=== PATIENT | male | born 1975 ===

== ENCOUNTER 2017-09-06 22:43 | Inpatient (IN) ==
[2017-09-07 00:40] LABS: Basophils % 0.2 % (0.0-0.8); Eosinophils % 0.1 % (0.00-10.9); Hemoglobin 10.5 GM/DL (14.0-18.0); Immature Granulocytes % 0.4 %; Immature Granulocytes Absolute 0.06 #; Lymphocytes # 1.1 10*3/uL (1.4-4.0); Lymphocytes % 7.5 % (21.2-54.2); Mean Corpuscular HGB Conc 33.9 GM/DL (32-36); Mean Corpuscular Hemoglobin 33 PG (27-34); Mean Corpuscular Volume 97.5 FL (87-102); Monocytes # 0.8 10*3/uL (0.11-0.8); Neutrophils % 86.8 % (38.7-73.9); Platelet Count 108 T/CUMM (130-400); Red Blood Count 3.18 MC/CUMM (3.8-5.5); Red Cell Distribution Width 14.8 % (9.3-17.3)
[2017-09-07 01:03] LABS: Calcium 7.1 MG/DL (8.5-10.1); Osmolality,Calculated 276.1 MOS/KG (273-304); Potassium 3.4 MMOL/L (3.5-5.1)
[2017-09-07] MEDS ORDERED: MAGNESIUM HYDROXIDE SUSP 30 ML UDCUP PO PRN (01:34)
[2017-09-07] MEDS ORDERED: ONDANSETRON 4 MG/2 ML VIAL IV PRN (01:34)
[2017-09-07] MEDS ORDERED: MORPHINE 2 MG/1 ML SYRINGE IV PRN ×2 (01:34→09:13)
[2017-09-07] MEDS ORDERED: CLINDAMYCIN INJ 600 MG in PREMIX 1 EACH IV STA (01:34)
[2017-09-07] MEDS ORDERED: CLINDAMYCIN INJ 600 MG in PREMIX 1 EACH IV SCH (03:00)
[2017-09-07] MEDS: INSULIN LISPRO 100 UNIT/ML SUBCUT SCH ×5 (03:31→20:48)
[2017-09-07 04:03] LABS: Albumin 2.3 G/DL (3.4-5.0); Bilirubin,Total 0.5 MG/DL (0.2-1.0); Calcium 7.4 MG/DL (8.5-10.1); Osmolality,Calculated 278.1 MOS/KG (273-304); Potassium 3.5 MMOL/L (3.5-5.1); Total Protein 7.4 G/DL (6.4-8.3)
[2017-09-07] MEDS ORDERED: VANCOMYCIN INJ 1,000 MG in SODIUM CHLORIDE 0.9% 250 ML IV ONE (07:59)
[2017-09-07] MEDS ORDERED: GLUCAGON 1 MG VIAL IM PRN (08:54)
[2017-09-07] MEDS ORDERED: DEXTROSE 50% 25 GM/50 ML VIAL IV PRN (08:54)
[2017-09-07] MEDS ORDERED: traZODone 50 MG TABLET PO PRN (08:55)
[2017-09-07] MEDS ORDERED: BISACODYL 5 MG TABLET PO PRN (08:55)
[2017-09-07] MEDS ORDERED: PROMETHAZINE 25 MG/1 ML VIAL IM PRN (08:55)
[2017-09-07] MEDS ORDERED: MEPERIDINE 25 MG/1 ML VIAL ONE (09:09)
[2017-09-07] MEDS ORDERED: ONDANSETRON 4 MG/2 ML VIAL ONE (09:09)
[2017-09-07] MEDS ORDERED: SEVOFLURANE 1 UNIT/15 MINUTE INH ONE (09:09)
[2017-09-07] MEDS ORDERED: PROPOFOL 200 MG/20 ML VIAL IV ONE (09:09)
[2017-09-07] MEDS: SEVELAMER CARBONATE 800 MG TABLET PO SCH ×3 (09:54→17:15)
[2017-09-07 10:04] LABS: Risk Ratio 4.39; VLDL CHOLESTEROL 30.6 MG/DL
[2017-09-07] MEDS: ASPIRIN EC 81 MG TABLET PO SCH (10:32)
[2017-09-07] MEDS: MULTIVITAMIN (BEROCCA) TABLET PO SCH (10:32)
[2017-09-07] MEDS: CARVEDILOL 12.5 MG TABLET PO SCH ×2 (10:32→21:15)
[2017-09-07] MEDS: PIPERACILLIN/TAZOBACTAM 3,375 MG in SODIUM CHLORIDE 0.9% 100 ML IV SCH ×2 (11:50→22:57)
[2017-09-07] MEDS: MUPIROCIN 2% OINT 22 GM TUBE TOP SCH ×2 (12:06→21:19)
[2017-09-07] MEDS: INSULIN REGULAR 100 UNIT/ML SUBCUT SCH ×3 (12:49→21:14)
[2017-09-07] MEDS: diphenhydrAMINE CAP 25 MG CAPSULE PO PRN ×2 (15:36→22:58)
[2017-09-08] MEDS: MORPHINE 2 MG/1 ML SYRINGE IV PRN ×3 (06:10→23:40)
[2017-09-08] MEDS: diphenhydrAMINE CAP 25 MG CAPSULE PO PRN ×2 (06:18→12:19)
[2017-09-08 06:59] LABS: Basophils % 0.5 % (0.0-0.8); Eosinophils # 0.1 10*3/uL (0.0-0.87); Eosinophils % 2.1 % (0.00-10.9); Hemoglobin 10.6 GM/DL (14.0-18.0); Immature Granulocytes % 0.2 %; Immature Granulocytes Absolute 0.01 #; Lymphocytes # 1.4 10*3/uL (1.4-4.0); Lymphocytes % 32.3 % (21.2-54.2); Mean Corpuscular HGB Conc 33.1 GM/DL (32-36); Mean Corpuscular Hemoglobin 32 PG (27-34); Mean Corpuscular Volume 97.9 FL (87-102); Mean Platelet Volume 12.5 FL (9.6-12.0); Monocytes # 0.4 10*3/uL (0.11-0.8); Monocytes % 8.4 % (1.7-12.7); Neutrophils # 2.4 10*3/uL (1.4-7.4); Neutrophils % 56.5 % (38.7-73.9); Red Blood Count 3.27 MC/CUMM (3.8-5.5); Red Cell Distribution Width 14.9 % (9.3-17.3)
[2017-09-08 07:09] LABS: Platelet Count 84 T/CUMM (130-400); White Blood Count 4.3 T/CUMM (4-12)
[2017-09-08 07:23] LABS: Calcium 7.2 MG/DL (8.5-10.1); Osmolality,Calculated 277.4 MOS/KG (273-304); Potassium 3.5 MMOL/L (3.5-5.1)
[2017-09-08 07:26] LABS: Hypochromasia 1+
[2017-09-08] MEDS: SEVELAMER CARBONATE 800 MG TABLET PO SCH ×3 (08:18→19:33)
[2017-09-08] MEDS: CARVEDILOL 12.5 MG TABLET PO SCH ×2 (08:19→20:35)
[2017-09-08] MEDS: MULTIVITAMIN (BEROCCA) TABLET PO SCH (08:19)
[2017-09-08] MEDS: ASPIRIN EC 81 MG TABLET PO SCH (08:19)
[2017-09-08] MEDS: INSULIN LISPRO 100 UNIT/ML SUBCUT SCH ×4 (08:21→21:45)
[2017-09-08] MEDS: INSULIN REGULAR 100 UNIT/ML SUBCUT SCH ×4 (08:21→21:45)
[2017-09-08] MEDS: MUPIROCIN 2% OINT 22 GM TUBE TOP SCH ×2 (10:15→21:45)
[2017-09-08] MEDS: PIPERACILLIN/TAZOBACTAM 3,375 MG in SODIUM CHLORIDE 0.9% 100 ML IV SCH ×2 (10:49→23:41)
[2017-09-09] MEDS: diphenhydrAMINE CAP 25 MG CAPSULE PO PRN (03:00)
[2017-09-09 06:34] LABS: Basophils % 0.6 % (0.0-0.8); Eosinophils # 0.1 10*3/uL (0.0-0.87); Eosinophils % 2.4 % (0.00-10.9); Hematocrit 30.5 VOL% (42.0-52.0); Immature Granulocytes % 0.2 %; Immature Granulocytes Absolute 0.01 #; Lymphocytes # 1.6 10*3/uL (1.4-4.0); Lymphocytes % 34.2 % (21.2-54.2); Mean Corpuscular HGB Conc 32.8 GM/DL (32-36); Mean Corpuscular Hemoglobin 32 PG (27-34); Mean Corpuscular Volume 97.8 FL (87-102); Mean Platelet Volume 11.8 FL (9.6-12.0); Monocytes # 0.5 10*3/uL (0.11-0.8); Monocytes % 10.2 % (1.7-12.7); Neutrophils # 2.4 10*3/uL (1.4-7.4); Neutrophils % 52.4 % (38.7-73.9); Platelet Count 100 T/CUMM (130-400); Red Blood Count 3.12 MC/CUMM (3.8-5.5); Red Cell Distribution Width 14.7 % (9.3-17.3); White Blood Count 4.6 T/CUMM (4-12)
[2017-09-09 06:57] LABS: Calcium 7.2 MG/DL (8.5-10.1); Osmolality,Calculated 275.2 MOS/KG (273-304); Potassium 3.7 MMOL/L (3.5-5.1)
[2017-09-09] MEDS: INSULIN REGULAR 100 UNIT/ML SUBCUT SCH ×4 (09:02→23:46)
[2017-09-09] MEDS: INSULIN LISPRO 100 UNIT/ML SUBCUT SCH ×4 (09:03→21:29)
[2017-09-09] MEDS: MORPHINE 2 MG/1 ML SYRINGE IV PRN ×4 (09:04→23:47)
[2017-09-09] MEDS: SEVELAMER CARBONATE 800 MG TABLET PO SCH ×3 (10:35→18:52)
[2017-09-09] MEDS: ASPIRIN EC 81 MG TABLET PO SCH (10:35)
[2017-09-09] MEDS: MUPIROCIN 2% OINT 22 GM TUBE TOP SCH ×2 (10:36→21:29)
[2017-09-09] MEDS: MULTIVITAMIN (BEROCCA) TABLET PO SCH (10:36)
[2017-09-09] MEDS: CARVEDILOL 12.5 MG TABLET PO SCH ×2 (10:36→21:28)
[2017-09-09] MEDS ORDERED: DEXAMETHASONE 4 MG/1 ML VIAL ONE (10:43)
[2017-09-09] MEDS ORDERED: ETOMIDATE 20 MG/10 ML VIAL IV ONE ×2 (10:43→12:21)
[2017-09-09] MEDS ORDERED: PROPOFOL 200 MG/20 ML VIAL IV ONE ×2 (10:43→12:20)
[2017-09-09] MEDS ORDERED: LIDOCAINE 2% 5 ML VIAL ONE (10:43)
[2017-09-09] MEDS ORDERED: ONDANSETRON 4 MG/2 ML VIAL ONE ×2 (10:43→12:21)
[2017-09-09] MEDS ORDERED: HEPARIN 5,000 UNIT/1 ML VIAL ONE (11:29)
[2017-09-09] MEDS ORDERED: DEXAMETHASONE 10 MG/1 ML VIAL ONE (12:21)
[2017-09-09] MEDS ORDERED: MIDAZOLAM 2 MG/2 ML VIAL ONE (12:21)
[2017-09-09] MEDS ORDERED: SODIUM CHLORIDE 0.9% 250 ML IV ONE (12:21)
[2017-09-09] MEDS ORDERED: SEVOFLURANE 1 UNIT/15 MINUTE INH ONE (12:21)
[2017-09-09] MEDS: PIPERACILLIN/TAZOBACTAM 3,375 MG in SODIUM CHLORIDE 0.9% 100 ML IV SCH ×2 (14:11→22:43)
[2017-09-09] MEDS ORDERED: VANCOMYCIN INJ 750 MG in SODIUM CHLORIDE 0.9% 150 ML IV ONE (16:00)
[2017-09-09] MEDS ORDERED: cloNIDine 0.1 MG TABLET PO PRN (16:10)
[2017-09-09] MEDS ORDERED: VANCOMYCIN INJ 750 MG in SODIUM CHLORIDE 0.9% 250 ML IV PRN (18:00)
[2017-09-09] MEDS: LOSARTAN 50 MG TABLET PO SCH (18:52)
[2017-09-10] MEDS: MORPHINE 2 MG/1 ML SYRINGE IV PRN ×3 (06:02→21:22)
[2017-09-10 06:34] LABS: Calcium 6.9 MG/DL (8.5-10.1); Osmolality,Calculated 282.2 MOS/KG (273-304); Potassium 4.3 MMOL/L (3.5-5.1)
[2017-09-10 07:51] LABS: Basophils % 0.2 % (0.0-0.8); Hematocrit 29.5 VOL% (42.0-52.0); Immature Granulocytes % 0.4 %; Immature Granulocytes Absolute 0.02 #; Lymphocytes # 0.9 10*3/uL (1.4-4.0); Lymphocytes % 20.9 % (21.2-54.2); Mean Corpuscular HGB Conc 33.9 GM/DL (32-36); Mean Corpuscular Hemoglobin 33 PG (27-34); Mean Platelet Volume 12.1 FL (9.6-12.0); Monocytes # 0.4 10*3/uL (0.11-0.8); Neutrophils # 3.1 10*3/uL (1.4-7.4); Neutrophils % 69.5 % (38.7-73.9); Platelet Count 124 T/CUMM (130-400); Red Blood Count 3.04 MC/CUMM (3.8-5.5); Red Cell Distribution Width 14.7 % (9.3-17.3); White Blood Count 4.5 T/CUMM (4-12)
[2017-09-10] MEDS: INSULIN LISPRO 100 UNIT/ML SUBCUT SCH ×4 (07:56→21:16)
[2017-09-10] MEDS: INSULIN REGULAR 100 UNIT/ML SUBCUT SCH ×3 (07:56→17:23)
[2017-09-10] MEDS ORDERED: HEPARIN 5,000 UNIT/1 ML VIAL ONE (08:42)
[2017-09-10] MEDS: SEVELAMER CARBONATE 800 MG TABLET PO SCH ×3 (08:55→17:20)
[2017-09-10] MEDS: ASPIRIN EC 81 MG TABLET PO SCH (08:55)
[2017-09-10] MEDS: MULTIVITAMIN (BEROCCA) TABLET PO SCH (08:56)
[2017-09-10] MEDS: CARVEDILOL 12.5 MG TABLET PO SCH ×2 (08:56→21:16)
[2017-09-10] MEDS: MUPIROCIN 2% OINT 22 GM TUBE TOP SCH ×2 (08:56→21:26)
[2017-09-10] MEDS: LOSARTAN 50 MG TABLET PO SCH (08:56)
[2017-09-10] MEDS ORDERED: BUPIVACAINE 0.25% 50 ML VIAL ONE (09:00)
[2017-09-10] MEDS ORDERED: MICROFIBRILLAR COLLAGEN POWDER 1 GM CAN TOP ONE (09:30)
[2017-09-10] MEDS ORDERED: SODIUM CHLORIDE 0.9% IV SCH (11:00)
[2017-09-10] MEDS ORDERED: DAPTOMYCIN IV SCH (11:00)
[2017-09-10] MEDS: PIPERACILLIN/TAZOBACTAM 3,375 MG in SODIUM CHLORIDE 0.9% 100 ML IV SCH (11:18)
[2017-09-10] MEDS: AMPICILLIN/SULBACTAM 1,500 MG in SODIUM CHLORIDE 0.9% 50 ML IV SCH ×2 (11:26→23:09)
[2017-09-10] MEDS: diphenhydrAMINE CAP 25 MG CAPSULE PO PRN (11:43)
[2017-09-10] MEDS ORDERED: INSULIN GLARGINE 100 UNIT/ML SUBCUT SCH (21:00)
[2017-09-11 05:08] LABS: Hematocrit 24.2 VOL% (42.0-52.0)
[2017-09-11 05:40] LABS: Calcium 6.4 MG/DL (8.5-10.1); Osmolality,Calculated 272.4 MOS/KG (273-304); Potassium 4.3 MMOL/L (3.5-5.1)
[2017-09-11] MEDS ORDERED: ePHEDrine 50 MG/ML AMP ONE (07:36)
[2017-09-11] MEDS ORDERED: fentaNYL 100 MCG/2 ML VIAL ONE (07:36)
[2017-09-11] MEDS ORDERED: MIDAZOLAM 2 MG/2 ML VIAL ONE (07:36)
[2017-09-11] MEDS: INSULIN LISPRO 100 UNIT/ML SUBCUT SCH ×4 (07:37→20:11)
[2017-09-11] MEDS: DOCUSATE SODIUM 100 MG CAPSULE PO PRN (07:48)
[2017-09-11] MEDS: MORPHINE 2 MG/1 ML SYRINGE IV PRN ×3 (07:48→20:10)
[2017-09-11] MEDS: LOSARTAN 50 MG TABLET PO SCH (08:01)
[2017-09-11] MEDS: MULTIVITAMIN (BEROCCA) TABLET PO SCH (08:01)
[2017-09-11] MEDS: CARVEDILOL 12.5 MG TABLET PO SCH ×2 (08:01→20:10)
[2017-09-11] MEDS: ASPIRIN EC 81 MG TABLET PO SCH (08:01)
[2017-09-11] MEDS: SEVELAMER CARBONATE 800 MG TABLET PO SCH ×3 (08:02→17:12)
[2017-09-11] MEDS: MUPIROCIN 2% OINT 22 GM TUBE TOP SCH ×3 (08:02→20:08)
[2017-09-11] MEDS: diphenhydrAMINE CAP 25 MG CAPSULE PO PRN (10:05)
[2017-09-11] MEDS ORDERED: HEPARIN 10,000 UNIT/10 ML VIAL IV SCH (11:00)
[2017-09-11] MEDS ORDERED: ONDANSETRON 4 MG/2 ML VIAL ONE (12:04)
[2017-09-11] MEDS ORDERED: SEVOFLURANE 1 UNIT/15 MINUTE INH ONE (12:04)
[2017-09-11] MEDS ORDERED: PHENYLEPHRINE DRIP 20 MG/250 ML PREMIX IV ONE (12:04)
[2017-09-11] MEDS ORDERED: PROPOFOL 200 MG/20 ML VIAL IV ONE (12:04)
[2017-09-11] MEDS: AMPICILLIN/SULBACTAM 1,500 MG in SODIUM CHLORIDE 0.9% 50 ML IV SCH ×2 (12:31→22:59)
[2017-09-11] MEDS ORDERED: INSULIN GLARGINE 100 UNIT/ML SUBCUT SCH (15:36)
[2017-09-11] MEDS: AMPICILLIN INJ 2,000 MG in SODIUM CHLORIDE 0.9% 50 ML IV SCH (18:38)
[2017-09-12] MEDS: MORPHINE 2 MG/1 ML SYRINGE IV PRN ×3 (04:37→20:30)
[2017-09-12 06:26] LABS: Basophils % 0.4 % (0.0-0.8); Eosinophils # 0.1 10*3/uL (0.0-0.87); Eosinophils % 1.3 % (0.00-10.9); Hematocrit 26.9 VOL% (42.0-52.0); Hemoglobin 8.8 GM/DL (14.0-18.0); Immature Granulocytes % 0.4 %; Immature Granulocytes Absolute 0.02 #; Lymphocytes # 1.7 10*3/uL (1.4-4.0); Lymphocytes % 32.4 % (21.2-54.2); Mean Corpuscular HGB Conc 32.7 GM/DL (32-36); Mean Corpuscular Hemoglobin 32 PG (27-34); Mean Corpuscular Volume 98.9 FL (87-102); Mean Platelet Volume 11.2 FL (9.6-12.0); Monocytes # 0.5 10*3/uL (0.11-0.8); Monocytes % 9.4 % (1.7-12.7); Neutrophils # 2.9 10*3/uL (1.4-7.4); Neutrophils % 56.1 % (38.7-73.9); Platelet Count 160 T/CUMM (130-400); Red Blood Count 2.72 MC/CUMM (3.8-5.5); Red Cell Distribution Width 15.4 % (9.3-17.3); White Blood Count 5.2 T/CUMM (4-12)
[2017-09-12 07:14] LABS: Calcium 7.2 MG/DL (8.5-10.1); Magnesium 2.1 MG/DL (1.8-2.4); Osmolality,Calculated 273.4 MOS/KG (273-304); Potassium 4.8 MMOL/L (3.5-5.1)
[2017-09-12] MEDS: INSULIN LISPRO 100 UNIT/ML SUBCUT SCH ×4 (08:34→20:30)
[2017-09-12] MEDS: SEVELAMER CARBONATE 800 MG TABLET PO SCH ×3 (08:35→17:08)
[2017-09-12] MEDS: ASPIRIN EC 81 MG TABLET PO SCH (08:36)
[2017-09-12] MEDS: CARVEDILOL 12.5 MG TABLET PO SCH ×2 (08:36→20:23)
[2017-09-12] MEDS: MULTIVITAMIN (BEROCCA) TABLET PO SCH (08:36)
[2017-09-12] MEDS: LOSARTAN 50 MG TABLET PO SCH (08:38)
[2017-09-12] MEDS: MUPIROCIN 2% OINT 22 GM TUBE TOP SCH ×2 (09:00→23:04)
[2017-09-12] MEDS: LACTULOSE 20 GM/30 ML UDCUP PO PRN (09:02)
[2017-09-12] MEDS: diphenhydrAMINE CAP 25 MG CAPSULE PO PRN (11:27)
[2017-09-12] MEDS: AMPICILLIN/SULBACTAM 1,500 MG in SODIUM CHLORIDE 0.9% 50 ML IV SCH (12:05)
[2017-09-12] MEDS: INSULIN GLARGINE 100 UNIT/ML SUBCUT SCH (20:24)
[2017-09-13] MEDS: AMPICILLIN/SULBACTAM 1,500 MG in SODIUM CHLORIDE 0.9% 50 ML IV SCH ×2 (00:22→12:56)
[2017-09-13 03:28] LABS: Basophils % 0.6 % (0.0-0.8); Eosinophils # 0.2 10*3/uL (0.0-0.87); Eosinophils % 3.6 % (0.00-10.9); Hematocrit 23.9 VOL% (42.0-52.0); Hemoglobin 7.9 GM/DL (14.0-18.0); Immature Granulocytes % 0.4 %; Immature Granulocytes Absolute 0.02 #; Lymphocytes # 1.9 10*3/uL (1.4-4.0); Lymphocytes % 38.1 % (21.2-54.2); Mean Corpuscular HGB Conc 33.1 GM/DL (32-36); Mean Corpuscular Hemoglobin 32 PG (27-34); Mean Platelet Volume 10.9 FL (9.6-12.0); Monocytes # 0.5 10*3/uL (0.11-0.8); Monocytes % 10.7 % (1.7-12.7); Neutrophils # 2.4 10*3/uL (1.4-7.4); Neutrophils % 46.6 % (38.7-73.9); Platelet Count 174 T/CUMM (130-400); Red Blood Count 2.44 MC/CUMM (3.8-5.5); Red Cell Distribution Width 15.5 % (9.3-17.3)
[2017-09-13] MEDS: MORPHINE 2 MG/1 ML SYRINGE IV PRN ×3 (06:46→23:58)
[2017-09-13] MEDS: INSULIN LISPRO 100 UNIT/ML SUBCUT SCH ×4 (08:30→22:39)
[2017-09-13] MEDS: SEVELAMER CARBONATE 800 MG TABLET PO SCH ×3 (08:30→17:33)
[2017-09-13] MEDS: diphenhydrAMINE CAP 25 MG CAPSULE PO PRN (08:44)
[2017-09-13] MEDS: MULTIVITAMIN (BEROCCA) TABLET PO SCH (12:58)
[2017-09-13] MEDS: LOSARTAN 50 MG TABLET PO SCH (12:58)
[2017-09-13] MEDS: CARVEDILOL 12.5 MG TABLET PO SCH ×2 (12:58→21:39)
[2017-09-13] MEDS: ASPIRIN EC 81 MG TABLET PO SCH (12:58)
[2017-09-13] MEDS: MUPIROCIN 2% OINT 22 GM TUBE TOP SCH ×2 (13:04→23:00)
[2017-09-13] MEDS: AMPICILLIN INJ 2,000 MG in SODIUM CHLORIDE 0.9% 50 ML IV SCH (19:27)
[2017-09-13] MEDS: INSULIN GLARGINE 100 UNIT/ML SUBCUT SCH (21:42)
[2017-09-14] MEDS: AMPICILLIN/SULBACTAM 1,500 MG in SODIUM CHLORIDE 0.9% 50 ML IV SCH ×3 (00:01→23:27)
[2017-09-14] MEDS: diphenhydrAMINE CAP 25 MG CAPSULE PO PRN ×2 (01:45→13:59)
[2017-09-14 05:22] LABS: Basophils % 0.8 % (0.0-0.8); Eosinophils # 0.2 10*3/uL (0.0-0.87); Eosinophils % 3.1 % (0.00-10.9); Hematocrit 24.3 VOL% (42.0-52.0); Hemoglobin 8.1 GM/DL (14.0-18.0); Immature Granulocytes % 0.2 %; Immature Granulocytes Absolute 0.01 #; Lymphocytes # 1.4 10*3/uL (1.4-4.0); Lymphocytes % 29.9 % (21.2-54.2); Mean Corpuscular HGB Conc 33.3 GM/DL (32-36); Mean Corpuscular Hemoglobin 33 PG (27-34); Mean Corpuscular Volume 98.4 FL (87-102); Mean Platelet Volume 10.9 FL (9.6-12.0); Monocytes # 0.5 10*3/uL (0.11-0.8); Monocytes % 9.5 % (1.7-12.7); Neutrophils # 2.7 10*3/uL (1.4-7.4); Neutrophils % 56.5 % (38.7-73.9); Platelet Count 178 T/CUMM (130-400); Red Blood Count 2.47 MC/CUMM (3.8-5.5); Red Cell Distribution Width 15.5 % (9.3-17.3); White Blood Count 4.8 T/CUMM (4-12)
[2017-09-14 05:48] LABS: Alanine Aminotransferase < 9 U/L (16-61); Alkaline Phosphatase 103 U/L (45-117); Aspartate Amino Transferase 14 U/L (0-37); Bilirubin,Total < 0.39 MG/DL (0.2-1.0); Blood Urea Nitrogen 18 MG/DL (7-18); Calcium 7.4 MG/DL (8.5-10.1); Glucose 199 MG/DL (74-106); Magnesium 2.1 MG/DL (1.8-2.4); Osmolality,Calculated 271.5 MOS/KG (273-304); Phosphorous 2.8 MG/DL (2.5-4.9); Potassium 5.1 MMOL/L (3.5-5.1); Sodium 132 MMOL/L (136-145); Total Protein 6.8 G/DL (6.4-8.3)
[2017-09-14] MEDS: SEVELAMER CARBONATE 800 MG TABLET PO SCH ×3 (07:50→17:04)
[2017-09-14] MEDS: INSULIN LISPRO 100 UNIT/ML SUBCUT SCH ×4 (08:32→21:20)
[2017-09-14] MEDS: LOSARTAN 50 MG TABLET PO SCH (08:33)
[2017-09-14] MEDS: CARVEDILOL 12.5 MG TABLET PO SCH ×2 (08:33→21:36)
[2017-09-14] MEDS: MULTIVITAMIN (BEROCCA) TABLET PO SCH (08:33)
[2017-09-14] MEDS: ASPIRIN EC 81 MG TABLET PO SCH (08:33)
[2017-09-14] MEDS: MORPHINE 2 MG/1 ML SYRINGE IV PRN (12:56)
[2017-09-14] MEDS: MUPIROCIN 2% OINT 22 GM TUBE TOP SCH ×2 (13:01→21:36)
[2017-09-14] MEDS: LACTULOSE 20 GM/30 ML UDCUP PO PRN (18:37)
[2017-09-14] MEDS: INSULIN GLARGINE 100 UNIT/ML SUBCUT SCH (21:36)
[2017-09-15] MEDS: diphenhydrAMINE CAP 25 MG CAPSULE PO PRN ×3 (03:02→20:29)
[2017-09-15] MEDS: MORPHINE 2 MG/1 ML SYRINGE IV PRN ×3 (03:02→21:55)
[2017-09-15] MEDS: SEVELAMER CARBONATE 800 MG TABLET PO SCH ×3 (07:48→17:22)
[2017-09-15] MEDS: INSULIN LISPRO 100 UNIT/ML SUBCUT SCH ×4 (08:09→20:19)
[2017-09-15] MEDS: DOCUSATE SODIUM 100 MG CAPSULE PO PRN (09:13)
[2017-09-15] MEDS: LOSARTAN 50 MG TABLET PO SCH (09:13)
[2017-09-15] MEDS: CARVEDILOL 12.5 MG TABLET PO SCH ×2 (09:13→20:29)
[2017-09-15] MEDS: MULTIVITAMIN (BEROCCA) TABLET PO SCH (09:14)
[2017-09-15] MEDS: ASPIRIN EC 81 MG TABLET PO SCH (09:14)
[2017-09-15] MEDS: MUPIROCIN 2% OINT 22 GM TUBE TOP SCH ×2 (09:58→20:19)
[2017-09-15] MEDS: AMPICILLIN/SULBACTAM 1,500 MG in SODIUM CHLORIDE 0.9% 50 ML IV SCH ×2 (10:44→23:05)
[2017-09-15] MEDS ORDERED: INSULIN GLARGINE 100 UNIT/ML SUBCUT SCH (17:15)
[2017-09-16] MEDS: INSULIN LISPRO 100 UNIT/ML SUBCUT SCH ×3 (11:21→16:01)
[2017-09-16] MEDS: SEVELAMER CARBONATE 800 MG TABLET PO SCH ×3 (11:56→17:47)
[2017-09-16 11:57] LABS: Free T4 (Free Thyroxine) 1.01 NG/DL (0.76-1.46); Thyroid Stimulating Hormone 7.75 uIU/ml (0.358-3.74)
[2017-09-16] MEDS: MUPIROCIN 2% OINT 22 GM TUBE TOP SCH (11:57)
[2017-09-16] MEDS: CARVEDILOL 12.5 MG TABLET PO SCH (13:15)
[2017-09-16] MEDS: LOSARTAN 50 MG TABLET PO SCH (13:15)
[2017-09-16] MEDS: ASPIRIN EC 81 MG TABLET PO SCH (13:16)
[2017-09-16] MEDS: MULTIVITAMIN (BEROCCA) TABLET PO SCH (13:16)
[2017-09-16] MEDS: AMPICILLIN/SULBACTAM 1,500 MG in SODIUM CHLORIDE 0.9% 50 ML IV SCH (13:18)
[2017-09-16] MEDS: MORPHINE 2 MG/1 ML SYRINGE IV PRN (13:29)
[2017-09-16 16:24] VITALS: BP 136/57
== END 2017-09-16 18:10 | disposition hospice, home (50) | DRG 853 ==
LOC: EDBD → EDUNIT# → N.ED 22:43 → N.EDINP 09-07 00:27 → N.3E 09-07 01:12
PROVIDERS: ADMIT Orthopaedic Surgery; ATTEND Orthopaedic Surgery

== ENCOUNTER 2018-06-14 13:38 | Observation (INO) ==
[2018-06-14] MEDS ORDERED: guaiFENesin/DM ER 600-30 MG TABLET PO PRN (16:25)
[2018-06-14] MEDS ORDERED: traZODone 50 MG TABLET PO PRN (16:25)
[2018-06-14] MEDS ORDERED: ONDANSETRON 4 MG/2 ML VIAL IV PRN (16:25)
[2018-06-14] MEDS ORDERED: ACETAMINOPHEN 325 MG TABLET PO PRN (16:25)
[2018-06-14] MEDS ORDERED: DEXTROSE 50% 25 GM/50 ML VIAL IV PRN (16:25)
[2018-06-14] MEDS ORDERED: GLUCAGON 1 MG VIAL IM PRN (16:25)
[2018-06-14] MEDS ORDERED: cloNIDine 0.1 MG TABLET PO PRN (16:33)
[2018-06-14] MEDS ORDERED: POLYVINYL ALCOHOL 1.4% OPH SOLN 15 ML BOTTLE BOTH EYES PRN (16:33)
[2018-06-14] MEDS ORDERED: diphenhydrAMINE CAP 25 MG CAPSULE PO PRN (16:33)
[2018-06-14] MEDS: INSULIN LISPRO 100 UNIT/ML SUBCUT SCH ×2 (17:01→21:46)
[2018-06-14] MEDS: MORPHINE 4 MG/1 ML VIAL IV PRN ×2 (17:01→21:45)
[2018-06-14] MEDS: CARVEDILOL 12.5 MG TABLET PO SCH (17:38)
[2018-06-14] MEDS: SEVELAMER CARBONATE 800 MG TABLET PO SCH (17:38)
[2018-06-14 17:53] LABS: Calcium 8.4 MG/DL (8.5-10.1); Osmolality,Calculated 285.7 MOS/KG (273-304); Potassium 3.9 MMOL/L (3.5-5.1)
[2018-06-14] MEDS ORDERED: ENOXAPARIN 30 MG/0.3 ML SYRINGE SUBCUT SCH (21:00)
[2018-06-14] MEDS ORDERED: INSULIN LISPRO 100 UNIT/ML SUBCUT SCH (21:00)
[2018-06-14] MEDS ORDERED: INSULIN GLARGINE 100 UNIT/ML SUBCUT SCH (21:00)
[2018-06-14] MEDS: MUPIROCIN 2% OINT 22 GM TUBE TOP SCH (21:45)
[2018-06-15] MEDS: MORPHINE 4 MG/1 ML VIAL IV PRN ×3 (02:48→13:25)
[2018-06-15 05:42] LABS: Basophils % 0.1 % (0.0-0.8); Eosinophils # 0.5 10*3/uL (0.0-0.87); Eosinophils % 5.1 % (0.00-10.9); Hematocrit 31.9 VOL% (42.0-52.0); Hemoglobin 10.7 GM/DL (14.0-18.0); Immature Granulocytes % 0.5 %; Immature Granulocytes Absolute 0.05 #; Lymphocytes % 11.3 % (21.2-54.2); Mean Corpuscular HGB Conc 33.5 GM/DL (32-36); Mean Corpuscular Hemoglobin 32 PG (27-34); Mean Corpuscular Volume 95.5 FL (87-102); Mean Platelet Volume 11.1 FL (9.6-12.0); Monocytes # 0.6 10*3/uL (0.11-0.8); Monocytes % 6.3 % (1.7-12.7); Neutrophils # 7.1 10*3/uL (1.4-7.4); Neutrophils % 76.7 % (38.7-73.9); Platelet Count 210 T/CUMM (130-400); Red Blood Count 3.34 MC/CUMM (3.8-5.5); Red Cell Distribution Width 13.5 % (9.3-17.3); White Blood Count 9.2 T/CUMM (4-12)
[2018-06-15 06:10] LABS: Calcium 8.5 MG/DL (8.5-10.1); Osmolality,Calculated 275.4 MOS/KG (273-304)
[2018-06-15] MEDS: MUPIROCIN 2% OINT 22 GM TUBE TOP SCH (08:11)
[2018-06-15] MEDS: CARVEDILOL 12.5 MG TABLET PO SCH (08:11)
[2018-06-15] MEDS: SEVELAMER CARBONATE 800 MG TABLET PO SCH ×2 (08:11→11:42)
[2018-06-15] MEDS: INSULIN LISPRO 100 UNIT/ML SUBCUT SCH ×2 (08:12→11:42)
[2018-06-15] MEDS ORDERED: PANTOPRAZOLE 40 MG TABLET PO SCH (09:00)
[2018-06-15] MEDS ORDERED: ASPIRIN EC 81 MG TABLET PO SCH (09:00)
[2018-06-15] MEDS ORDERED: MULTIVITAMIN (BEROCCA) TABLET PO SCH (09:00)
[2018-06-15] MEDS ORDERED: LOSARTAN 50 MG TABLET PO SCH (09:00)
[2018-06-15 12:24] VITALS: BP 115/73
== END 2018-06-15 16:28 | disposition home or self-care (01) ==
LOC: N.2E → SUATTDRO 15:49
PROVIDERS: ADMIT Internal Medicine; ATTEND Hospitalist

== ENCOUNTER 2018-07-04 08:41 | Inpatient (IN) ==
[2018-07-04 11:02] LABS: Basophils # 0.1 10*3/uL (0.0-0.2); Basophils % 0.6 % (0.0-0.8); Eosinophils # 0.2 10*3/uL (0.0-0.87); Eosinophils % 2.6 % (0.00-10.9); Hematocrit 37.9 VOL% (42.0-52.0); Hemoglobin 12.6 GM/DL (14.0-18.0); Immature Granulocytes % 0.3 %; Immature Granulocytes Absolute 0.03 #; Lymphocytes % 22.9 % (21.2-54.2); Mean Corpuscular HGB Conc 33.2 GM/DL (32-36); Mean Corpuscular Hemoglobin 32 PG (27-34); Mean Corpuscular Volume 97.4 FL (87-102); Mean Platelet Volume 11.1 FL (9.6-12.0); Monocytes # 0.5 10*3/uL (0.11-0.8); Monocytes % 5.4 % (1.7-12.7); Neutrophils % 68.2 % (38.7-73.9); Platelet Count 224 T/CUMM (130-400); Red Blood Count 3.89 MC/CUMM (3.8-5.5); Red Cell Distribution Width 13.3 % (9.3-17.3); White Blood Count 8.8 T/CUMM (4-12)
[2018-07-04 11:28] LABS: Bilirubin,Total 0.5 MG/DL (0.2-1.0); Calcium 8.7 MG/DL (8.5-10.1); Osmolality,Calculated 284.7 MOS/KG (273-304); Potassium 3.8 MMOL/L (3.5-5.1); Total Protein 8.6 G/DL (6.4-8.3)
[2018-07-04] MEDS ORDERED: MORPHINE 4 MG/1 ML VIAL IV STA (12:29)
[2018-07-04] MEDS ORDERED: ONDANSETRON 4 MG/2 ML VIAL IV PRN (14:05)
[2018-07-04] MEDS ORDERED: ACETAMINOPHEN 325 MG TABLET PO PRN (14:05)
[2018-07-04] MEDS ORDERED: GLUCAGON 1 MG VIAL IM PRN (14:09)
[2018-07-04] MEDS ORDERED: DEXTROSE 50% 25 GM/50 ML VIAL IV PRN (14:09)
[2018-07-04] MEDS ORDERED: traZODone 50 MG TABLET PO PRN (15:25)
[2018-07-04] MEDS: INSULIN NPH 100 UNIT/ML SUBCUT SCH (18:29)
[2018-07-04] MEDS: INSULIN REGULAR 100 UNIT/ML SUBCUT SCH (18:29)
[2018-07-04] MEDS: SEVELAMER CARBONATE 800 MG TABLET PO SCH (18:30)
[2018-07-04] MEDS: cloNIDine 0.1 MG TABLET PO PRN (18:30)
[2018-07-04] MEDS: CARVEDILOL 12.5 MG TABLET PO SCH (21:40)
[2018-07-05] MEDS: INSULIN REGULAR 100 UNIT/ML SUBCUT SCH ×5 (00:44→22:46)
[2018-07-05 05:19] LABS: Basophils # 0.1 10*3/uL (0.0-0.2); Basophils % 1.4 % (0.0-0.8); Eosinophils # 0.3 10*3/uL (0.0-0.87); Eosinophils % 6.4 % (0.00-10.9); Hematocrit 31.6 VOL% (42.0-52.0); Hemoglobin 10.5 GM/DL (14.0-18.0); Immature Granulocytes % 0.2 %; Immature Granulocytes Absolute 0.01 #; Lymphocytes # 1.5 10*3/uL (1.4-4.0); Lymphocytes % 36.3 % (21.2-54.2); Mean Corpuscular HGB Conc 33.2 GM/DL (32-36); Mean Corpuscular Hemoglobin 33 PG (27-34); Mean Corpuscular Volume 98.4 FL (87-102); Mean Platelet Volume 12.4 FL (9.6-12.0); Monocytes # 0.3 10*3/uL (0.11-0.8); Neutrophils % 47.7 % (38.7-73.9); Red Blood Count 3.21 MC/CUMM (3.8-5.5); Red Cell Distribution Width 13.1 % (9.3-17.3); White Blood Count 4.2 T/CUMM (4-12)
[2018-07-05 05:38] LABS: Platelet Count 163 T/CUMM (130-400)
[2018-07-05 05:49] LABS: Calcium 7.8 MG/DL (8.5-10.1); Osmolality,Calculated 287.8 MOS/KG (273-304); Potassium 3.9 MMOL/L (3.5-5.1)
[2018-07-05] MEDS: ASPIRIN EC 81 MG TABLET PO SCH (08:43)
[2018-07-05] MEDS: CARVEDILOL 12.5 MG TABLET PO SCH ×2 (08:43→22:45)
[2018-07-05] MEDS: LOSARTAN 50 MG TABLET PO SCH (08:43)
[2018-07-05] MEDS: INSULIN NPH 100 UNIT/ML SUBCUT SCH ×2 (08:43→17:54)
[2018-07-05] MEDS: cloNIDine 0.1 MG TABLET PO PRN (08:43)
[2018-07-05] MEDS: SEVELAMER CARBONATE 800 MG TABLET PO SCH ×3 (08:43→17:50)
[2018-07-05 13:39] LABS: Ovalocytes Few
[2018-07-05 13:40] LABS: Platelet Estimate Adequate; Polychromasia Slight
[2018-07-05] MEDS: PANTOPRAZOLE 40 MG VIAL IV SCH (22:45)
[2018-07-06] MEDS: INSULIN REGULAR 100 UNIT/ML SUBCUT SCH ×4 (11:23→20:32)
[2018-07-06] MEDS: INSULIN NPH 100 UNIT/ML SUBCUT SCH ×2 (11:23→16:56)
[2018-07-06] MEDS: SEVELAMER CARBONATE 800 MG TABLET PO SCH ×3 (11:23→16:57)
[2018-07-06] MEDS ORDERED: HEPARIN 10,000 UNIT/10 ML VIAL IV PRN (11:59)
[2018-07-06] MEDS ORDERED: LIDOCAINE 100 MG/5 ML SYRINGE ONE (14:09)
[2018-07-06] MEDS ORDERED: PROPOFOL 200 MG/20 ML VIAL IV ONE (14:09)
[2018-07-06] MEDS ORDERED: PHENYLEPHRINE 1 MG/10 ML SYRINGE IV ONE (14:09)
[2018-07-06] MEDS: LOSARTAN 50 MG TABLET PO SCH (15:30)
[2018-07-06] MEDS: ASPIRIN EC 81 MG TABLET PO SCH (15:32)
[2018-07-06] MEDS: CARVEDILOL 12.5 MG TABLET PO SCH ×2 (15:32→20:19)
[2018-07-06] MEDS: PANTOPRAZOLE 40 MG VIAL IV SCH (19:03)
[2018-07-06] MEDS: PANTOPRAZOLE 40 MG TABLET PO SCH (20:19)
[2018-07-07 08:09] LABS: Calcium 7.3 MG/DL (8.5-10.1); Potassium 4.4 MMOL/L (3.5-5.1)
[2018-07-07 11:28] VITALS: BP 119/79
[2018-07-07] MEDS: INSULIN NPH 100 UNIT/ML SUBCUT SCH (11:35)
[2018-07-07] MEDS: SEVELAMER CARBONATE 800 MG TABLET PO SCH ×2 (11:36→14:14)
[2018-07-07] MEDS: INSULIN REGULAR 100 UNIT/ML SUBCUT SCH ×2 (11:36→14:15)
[2018-07-07] MEDS: CARVEDILOL 12.5 MG TABLET PO SCH (14:14)
[2018-07-07] MEDS: LOSARTAN 50 MG TABLET PO SCH (14:14)
[2018-07-07] MEDS: ASPIRIN EC 81 MG TABLET PO SCH (14:14)
[2018-07-07] MEDS: PANTOPRAZOLE 40 MG TABLET PO SCH (14:15)
== END 2018-07-07 15:45 | disposition home or self-care (01) | DRG 73 ==
LOC: EDBD → EDUNIT# → N.ED 08:41 → N.EDINP 14:05 → SUATTDRO 14:05 → N.2E 15:45
PROVIDERS: ADMIT Internal Medicine Cardiovascular Disease; ATTEND Internal Medicine

== ENCOUNTER 2018-07-10 06:11 | Observation (INO) ==
[~2018-07-10 06:11] MED LIST: SODIUM CHLORIDE 0.9% 250 ML IV SCH
[2018-07-10] MEDS ORDERED: ceFAZolin 1,000 MG in SYRINGE 1 EACH IV ONE (06:30)
[2018-07-10 07:11] LABS: Hematocrit 35.1 VOL% (42.0-52.0); Hemoglobin 11.7 GM/DL (14.0-18.0)
[2018-07-10] MEDS ORDERED: ceFAZolin 1,000 MG VIAL ONE (07:51)
[2018-07-10] MEDS ORDERED: ONDANSETRON 4 MG/2 ML VIAL IV ONE (09:29)
[2018-07-10] MEDS ORDERED: FAMOTIDINE 20 MG/2 ML VIAL IV ONE ×2 (09:29→09:43)
[2018-07-10] MEDS ORDERED: HEPARIN 5,000 UNIT/1 ML VIAL ONE (09:30)
[2018-07-10] MEDS ORDERED: BUPIVACAINE 0.25% /EPI 10 ML VIAL ONE (09:31)
[2018-07-10] MEDS ORDERED: LIDOCAINE 1%/EPI INJ 20 ML VIAL ONE (09:31)
[2018-07-10] MEDS ORDERED: ONDANSETRON 4 MG/2 ML VIAL ONE ×2 (09:43→12:22)
[2018-07-10] MEDS ORDERED: PROPOFOL 200 MG/20 ML VIAL IV ONE (12:23)
[2018-07-10] MEDS ORDERED: SODIUM CHLORIDE 0.9% 100 ML IV ONE (12:24)
[2018-07-10] MEDS ORDERED: MIDAZOLAM 2 MG/2 ML VIAL ONE (12:24)
[2018-07-10] MEDS ORDERED: hydrALAZINE 20 MG/1 ML VIAL ONE (12:24)
[2018-07-10] MEDS ORDERED: fentaNYL 100 MCG/2 ML VIAL ONE (12:24)
[2018-07-10] MEDS ORDERED: HYDROmorphone 2 MG/1 ML VIAL ONE (12:27)
[2018-07-10] MEDS: HYDROmorphone 2 MG/1 ML VIAL IV PRN ×3 (12:28→12:46)
[2018-07-10] MEDS ORDERED: ONDANSETRON 4 MG/2 ML VIAL IV PRN ×2 (12:31→15:22)
[2018-07-10] MEDS ORDERED: hydrALAZINE 20 MG/1 ML VIAL IV ONE (12:35)
[2018-07-10] MEDS ORDERED: PROMETHAZINE 25 MG/1 ML VIAL IM STA (13:15)
[2018-07-10] MEDS ORDERED: PROMETHAZINE 25 MG/1 ML VIAL ONE (13:20)
[2018-07-10 13:47] LABS: Basophils % 0.7 % (0.0-0.8); Eosinophils # 0.1 10*3/uL (0.0-0.87); Hematocrit 35.3 VOL% (42.0-52.0); Hemoglobin 11.9 GM/DL (14.0-18.0); Immature Granulocytes % 0.2 %; Immature Granulocytes Absolute 0.01 #; Lymphocytes # 1.1 10*3/uL (1.4-4.0); Mean Corpuscular HGB Conc 33.7 GM/DL (32-36); Mean Corpuscular Hemoglobin 32 PG (27-34); Mean Corpuscular Volume 96.2 FL (87-102); Monocytes # 0.3 10*3/uL (0.11-0.8); Monocytes % 4.9 % (1.7-12.7); Neutrophils % 72.2 % (38.7-73.9); Platelet Count 202 T/CUMM (130-400); Red Blood Count 3.67 MC/CUMM (3.8-5.5); Red Cell Distribution Width 13.3 % (9.3-17.3); White Blood Count 5.5 T/CUMM (4-12)
[2018-07-10 14:16] LABS: Lactic Acid 0.7 MMOL/L (0.4-2.0)
[2018-07-10 14:28] LABS: Bilirubin,Total 0.4 MG/DL (0.2-1.0); Calcium 7.3 MG/DL (8.5-10.1); Osmolality,Calculated 289.1 MOS/KG (273-304); Potassium 4.7 MMOL/L (3.5-5.1); Total Protein 8.4 G/DL (6.4-8.3)
[2018-07-10] MEDS ORDERED: DEXTROSE 50% 25 GM/50 ML VIAL IV PRN (15:22)
[2018-07-10] MEDS ORDERED: GLUCAGON 1 MG VIAL IM PRN (15:22)
[2018-07-10] MEDS: INSULIN LISPRO 100 UNIT/ML SUBCUT SCH ×2 (16:36→22:11)
[2018-07-10] MEDS ORDERED: PROMETHAZINE 25 MG/1 ML VIAL IM PRN (16:38)
[2018-07-10] MEDS: MORPHINE 4 MG/1 ML VIAL IV PRN ×2 (16:56→22:32)
[2018-07-10] MEDS: PANTOPRAZOLE 40 MG TABLET PO SCH (19:09)
[2018-07-10] MEDS: SEVELAMER CARBONATE 800 MG TABLET PO SCH (19:09)
[2018-07-10] MEDS: METOCLOPRAMIDE 10 MG/2 ML VIAL IV SCH ×2 (19:25→23:48)
[2018-07-10] MEDS: CARVEDILOL 25 MG TABLET PO SCH (22:11)
[2018-07-10] MEDS: INSULIN GLARGINE 100 UNIT/ML SUBCUT SCH (22:11)
[2018-07-10] MEDS: ENOXAPARIN 30 MG/0.3 ML SYRINGE SUBCUT SCH (22:12)
[2018-07-11] MEDS: MORPHINE 4 MG/1 ML VIAL IV PRN ×4 (04:31→22:26)
[2018-07-11] MEDS: METOCLOPRAMIDE 10 MG/2 ML VIAL IV SCH ×3 (06:14→18:22)
[2018-07-11 06:25] LABS: Basophils % 0.7 % (0.0-0.8); Eosinophils # 0.2 10*3/uL (0.0-0.87); Eosinophils % 3.8 % (0.00-10.9); Hematocrit 30.2 VOL% (42.0-52.0); Hemoglobin 9.9 GM/DL (14.0-18.0); Immature Granulocytes % 0.2 %; Immature Granulocytes Absolute 0.01 #; Lymphocytes # 1.5 10*3/uL (1.4-4.0); Lymphocytes % 35.3 % (21.2-54.2); Mean Corpuscular HGB Conc 32.8 GM/DL (32-36); Mean Corpuscular Hemoglobin 33 PG (27-34); Mean Platelet Volume 11.5 FL (9.6-12.0); Monocytes # 0.4 10*3/uL (0.11-0.8); Neutrophils # 2.2 10*3/uL (1.4-7.4); Platelet Count 153 T/CUMM (130-400); Red Blood Count 3.05 MC/CUMM (3.8-5.5); Red Cell Distribution Width 13.3 % (9.3-17.3); White Blood Count 4.2 T/CUMM (4-12)
[2018-07-11 06:41] LABS: Albumin 2.6 G/DL (3.4-5.0); Bilirubin,Total 0.4 MG/DL (0.2-1.0); Calcium 7.2 MG/DL (8.5-10.1); Osmolality,Calculated 289.1 MOS/KG (273-304); Potassium 5.2 MMOL/L (3.5-5.1); Total Protein 7.1 G/DL (6.4-8.3)
[2018-07-11] MEDS ORDERED: EPOETIN ALFA 2,000 UNIT/1 ML VIAL IV PRN (08:32)
[2018-07-11] MEDS: INSULIN LISPRO 100 UNIT/ML SUBCUT SCH ×4 (09:47→22:37)
[2018-07-11] MEDS: SEVELAMER CARBONATE 800 MG TABLET PO SCH ×3 (09:47→16:31)
[2018-07-11] MEDS: LOSARTAN 50 MG TABLET PO SCH (14:16)
[2018-07-11] MEDS: CARVEDILOL 25 MG TABLET PO SCH ×2 (14:16→16:31)
[2018-07-11] MEDS: PANTOPRAZOLE 40 MG TABLET PO SCH ×2 (15:49→22:26)
[2018-07-11] MEDS ORDERED: BISACODYL 5 MG TABLET PO ONE (20:00)
[2018-07-11] MEDS: CYCLOBENZAPRINE 10 MG TABLET PO SCH (22:24)
[2018-07-11] MEDS: ENOXAPARIN 30 MG/0.3 ML SYRINGE SUBCUT SCH (22:26)
[2018-07-11] MEDS: INSULIN GLARGINE 100 UNIT/ML SUBCUT SCH (22:37)
[2018-07-12] MEDS: METOCLOPRAMIDE 10 MG/2 ML VIAL IV SCH ×3 (00:32→12:35)
[2018-07-12] MEDS: MORPHINE 4 MG/1 ML VIAL IV PRN ×2 (02:52→06:18)
[2018-07-12 07:56] LABS: Basophils % 0.3 % (0.0-0.8); Eosinophils # 0.2 10*3/uL (0.0-0.87); Eosinophils % 4.1 % (0.00-10.9); Hematocrit 26.6 VOL% (42.0-52.0); Hemoglobin 8.8 GM/DL (14.0-18.0); Immature Granulocytes % 0.3 %; Immature Granulocytes Absolute 0.01 #; Lymphocytes # 1.2 10*3/uL (1.4-4.0); Lymphocytes % 30.4 % (21.2-54.2); Mean Corpuscular HGB Conc 33.1 GM/DL (32-36); Mean Corpuscular Hemoglobin 33 PG (27-34); Mean Corpuscular Volume 98.5 FL (87-102); Mean Platelet Volume 10.5 FL (9.6-12.0); Monocytes # 0.4 10*3/uL (0.11-0.8); Monocytes % 11.2 % (1.7-12.7); Neutrophils # 2.1 10*3/uL (1.4-7.4); Neutrophils % 53.7 % (38.7-73.9); Platelet Count 129 T/CUMM (130-400); Red Cell Distribution Width 13.7 % (9.3-17.3); White Blood Count 3.9 T/CUMM (4-12)
[2018-07-12 08:19] LABS: Calcium 6.8 MG/DL (8.5-10.1); Osmolality,Calculated 288.1 MOS/KG (273-304); Potassium 4.1 MMOL/L (3.5-5.1)
[2018-07-12] MEDS: INSULIN LISPRO 100 UNIT/ML SUBCUT SCH ×2 (09:09→12:38)
[2018-07-12] MEDS: LOSARTAN 50 MG TABLET PO SCH (09:10)
[2018-07-12] MEDS: CARVEDILOL 25 MG TABLET PO SCH (09:10)
[2018-07-12] MEDS: SEVELAMER CARBONATE 800 MG TABLET PO SCH ×2 (09:10→12:38)
[2018-07-12] MEDS: CYCLOBENZAPRINE 10 MG TABLET PO SCH (09:11)
[2018-07-12] MEDS: PANTOPRAZOLE 40 MG TABLET PO SCH (09:12)
[2018-07-12 12:41] VITALS: BP 163/96
== END 2018-07-12 13:29 | disposition home or self-care (01) ==
LOC: N.OR 06:11 → N.SDSINP 06:11 → SUATTDRO 14:47 → N.3E 16:05
PROVIDERS: ADMIT Internal Medicine; ATTEND Hospitalist

== ENCOUNTER 2019-07-27 17:02 | Inpatient (IN) ==
[2019-07-27] MEDS ORDERED: DEXTROSE 50% 25 GM/50 ML VIAL IV PRN (20:39)
[2019-07-27] MEDS ORDERED: GLUCAGON 1 MG VIAL IM PRN (20:39)
[2019-07-27] MEDS: ONDANSETRON 4 MG/2 ML VIAL IV PRN (21:53)
[2019-07-27] MEDS: metroNIDAZOLE INJ 500 MG in PREMIX 1 EACH IV SCH (21:54)
[2019-07-27] MEDS: cefTRIAXone 2,000 MG in SYRINGE 1 EACH IV SCH (21:54)
[2019-07-28 04:46] LABS: Basophils % 0.3 % (0.0-0.8); Eosinophils # 0.1 10*3/uL (0.0-0.87); Eosinophils % 1.2 % (0.00-10.9); Hematocrit 31.6 VOL% (42.0-52.0); Hemoglobin 10.2 GM/DL (14.0-18.0); Immature Granulocytes % 0.7 %; Immature Granulocytes Absolute 0.04 #; Lymphocytes # 0.6 10*3/uL (1.4-4.0); Lymphocytes % 9.4 % (21.2-54.2); Mean Corpuscular HGB Conc 32.3 GM/DL (32-36); Mean Corpuscular Volume 101.3 FL (87-102); Mean Platelet Volume 11.6 FL (9.6-12.0); Monocytes % 5.4 % (1.7-12.7); Platelet Count 141 T/CUMM (130-400); Red Blood Count 3.12 MC/CUMM (3.8-5.5); Red Cell Distribution Width 13.9 % (9.3-17.3); White Blood Count 5.9 T/CUMM (4-12)
[2019-07-28] MEDS: metroNIDAZOLE INJ 500 MG in PREMIX 1 EACH IV SCH ×3 (04:55→21:21)
[2019-07-28] MEDS: ONDANSETRON 4 MG/2 ML VIAL IV PRN ×2 (04:55→14:12)
[2019-07-28 05:13] LABS: Albumin 2.5 G/DL (3.4-5.0); Bilirubin,Total 0.5 MG/DL (0.2-1.0); Osmolality,Calculated 286.7 MOS/KG (273-304)
[2019-07-28 05:57] LABS: Amylase 43 U/L (25-115)
[2019-07-28] MEDS: PANTOPRAZOLE 40 MG TABLET PO SCH (09:36)
[2019-07-28] MEDS: ASPIRIN EC 81 MG TABLET PO SCH (14:12)
[2019-07-28] MEDS: INSULIN REGULAR 100 UNIT/ML SUBCUT SCH ×2 (18:14→21:22)
[2019-07-28] MEDS: cefTRIAXone 2,000 MG in SYRINGE 1 EACH IV SCH (21:22)
[2019-07-28] MEDS: ERYTHROMYCIN 0.5% OPHT OINT 3.5 GM TUBE LEFT EYE SCH (21:33)
[2019-07-29] MEDS: metroNIDAZOLE INJ 500 MG in PREMIX 1 EACH IV SCH ×2 (05:40→15:14)
[2019-07-29] MEDS: INSULIN REGULAR 100 UNIT/ML SUBCUT SCH ×2 (08:05→15:14)
[2019-07-29] MEDS: ERYTHROMYCIN 0.5% OPHT OINT 3.5 GM TUBE LEFT EYE SCH ×2 (08:43→16:27)
[2019-07-29] MEDS: PANTOPRAZOLE 40 MG TABLET PO SCH (08:43)
[2019-07-29] MEDS: ASPIRIN EC 81 MG TABLET PO SCH (08:43)
[2019-07-29] MEDS ORDERED: HEPARIN 10,000 UNIT/10 ML VIAL IV SCH (12:30)
[2019-07-29] MEDS ORDERED: DICYCLOMINE 10 MG CAPSULE PO SCH (13:00)
[2019-07-29] MEDS ORDERED: ERYTHROMYCIN 0.5% OPHT OINT 1 GM TUBE LEFT EYE SCH (13:00)
[2019-07-29 15:01] VITALS: BP 169/107
[2019-07-29] MEDS ORDERED: GABAPENTIN 100 MG CAPSULE PO SCH (21:00)
[2019-07-29] MEDS ORDERED: CARVEDILOL 25 MG TABLET PO SCH (21:00)
== END 2019-07-29 16:26 | disposition home or self-care (01) | DRG 391 ==
LOC: N.5E → SUATTDRO 20:39
PROVIDERS: ADMIT Hospitalist; ATTEND Hospitalist

== ENCOUNTER 2020-08-09 14:27 | Inpatient (IN) ==
[2020-08-09] MEDS ORDERED: GLUCAGON 1 MG VIAL IM PRN (17:58)
[2020-08-09] MEDS ORDERED: DEXTROSE 50% 25 GM/50 ML VIAL IV PRN ×2 (17:58→18:01)
[2020-08-09] MEDS ORDERED: ACETAMINOPHEN 500 MG TABLET PO PRN (18:12)
[2020-08-09] MEDS ORDERED: VANCOMYCIN INJ 750 MG in SODIUM CHLORIDE 0.9% 250 ML IV PRN (19:14)
[2020-08-09] MEDS ORDERED: FLUCONAZOLE INJ 200 MG in PREMIX 1 EACH IV ONE (20:00)
[2020-08-09] MEDS: MORPHINE 4 MG/1 ML VIAL IV PRN (21:35)
[2020-08-09] MEDS: INSULIN REGULAR 100 UNIT/ML SUBCUT SCH (21:36)
[2020-08-09] MEDS: PIPERACILLIN/TAZOBACTAM 3,375 MG in SODIUM CHLORIDE 0.9% 100 ML IV SCH (22:18)
[2020-08-09] MEDS: HEPARIN 5,000 UNIT/1 ML VIAL SUBCUT SCH (22:18)
[2020-08-10] MEDS ORDERED: VANCOMYCIN INJ 750 MG in SODIUM CHLORIDE 0.9% 250 ML IV ONE ×3 (02:30→17:00)
[2020-08-10 06:35] LABS: Osmolality,Calculated 287.8 MOS/KG (273-304)
[2020-08-10 07:04] LABS: Basophils % 0.2 % (0.0-0.8); Eosinophils % 0.3 % (0.00-10.9); Hematocrit 26.6 VOL% (42.0-52.0); Hemoglobin 8.9 GM/DL (14.0-18.0); Immature Granulocytes % 1.1 %; Immature Granulocytes Absolute 0.12 #; Lymphocytes # 0.9 10*3/uL (1.4-4.0); Lymphocytes % 7.7 % (21.2-54.2); Mean Corpuscular HGB Conc 33.5 GM/DL (32-36); Mean Corpuscular Volume 99.6 FL (87-102); Mean Platelet Volume 14.3 FL (9.6-12.0); Monocytes % 7.9 % (1.7-12.7); Neutrophils % 82.8 % (38.7-73.9); Red Blood Count 2.67 MC/CUMM (3.8-5.5); Red Cell Distribution Width 14.5 % (9.3-17.3); White Blood Count 11.3 T/CUMM (4-12)
[2020-08-10 07:12] LABS: Platelet Count 54 T/CUMM (130-400)
[2020-08-10 07:17] LABS: Hypochromasia 1+; Microcytosis 1+; Platelet Estimate Decreased
[2020-08-10] MEDS: INSULIN REGULAR 100 UNIT/ML SUBCUT SCH ×4 (07:28→22:13)
[2020-08-10] MEDS: MORPHINE 4 MG/1 ML VIAL IV PRN ×2 (07:29→14:30)
[2020-08-10] MEDS: PIPERACILLIN/TAZOBACTAM 3,375 MG in SODIUM CHLORIDE 0.9% 100 ML IV SCH (07:31)
[2020-08-10] MEDS: ONDANSETRON 4 MG/2 ML VIAL IV PRN ×2 (07:36→13:15)
[2020-08-10] MEDS ORDERED: ONDANSETRON ODT 4 MG TABLET PO PRN (08:53)
[2020-08-10] MEDS ORDERED: VANCOMYCIN INJ 1,000 MG in SODIUM CHLORIDE 0.9% 250 ML IV SCH (09:30)
[2020-08-10] MEDS: HEPARIN 5,000 UNIT/1 ML VIAL SUBCUT SCH ×2 (10:38→22:14)
[2020-08-10] MEDS ORDERED: ALTEPLASE 2 MG VIAL IV ONE (12:00)
[2020-08-10 12:37] LABS: Hepatitis B Core IgM Quant 0.06 Index; Hepatitis B Surface Ag Quant 0.62 Index; Hepatitis B Surface Ag Result Negative (Negative); Hepatitis C Virus Ab Quant 0.25 Index; Hepatitis C Virus Ab Result Negative (Negative)
[2020-08-10] MEDS: ALBUTEROL/IPRATROPIUM 3 ML NEB RESP TX SCH ×3 (13:20→19:50)
[2020-08-10] MEDS ORDERED: fentaNYL 100 MCG/2 ML VIAL IV ONE (14:54)
[2020-08-10] MEDS ORDERED: MIDAZOLAM 2 MG/2 ML VIAL IV ONE (14:54)
[2020-08-10] MEDS ORDERED: DIAZEPAM 5 MG TABLET PO ONE (14:54)
[2020-08-10] MEDS: PANTOPRAZOLE 40 MG TABLET PO SCH (16:19)
[2020-08-10] MEDS: SEVELAMER CARBONATE 800 MG TABLET PO SCH (16:19)
[2020-08-10] MEDS: GABAPENTIN 100 MG CAPSULE PO SCH (22:13)
[2020-08-10] MEDS: NYSTATIN POWDER 15 GM BOTTLE TOP SCH (23:10)
[2020-08-11] MEDS: ONDANSETRON 4 MG/2 ML VIAL IV PRN ×2 (03:40→08:39)
[2020-08-11 06:08] LABS: Basophils % 0.2 % (0.0-0.8); Eosinophils % 0.1 % (0.00-10.9); Hematocrit 26.7 VOL% (42.0-52.0); Hemoglobin 8.9 GM/DL (14.0-18.0); Immature Granulocytes % 1.7 %; Lymphocytes # 0.9 10*3/uL (1.4-4.0); Lymphocytes % 4.8 % (21.2-54.2); Mean Corpuscular HGB Conc 33.3 GM/DL (32-36); Mean Corpuscular Volume 99.3 FL (87-102); Mean Platelet Volume 14.5 FL (9.6-12.0); Neutrophils % 86.2 % (38.7-73.9); Platelet Count 62 T/CUMM (130-400); Red Blood Count 2.69 MC/CUMM (3.8-5.5); Red Cell Distribution Width 14.6 % (9.3-17.3); White Blood Count 17.8 T/CUMM (4-12)
[2020-08-11 06:14] LABS: PT Patient Result 11.2 SECS (9.8-11.9)
[2020-08-11 06:23] LABS: Osmolality,Calculated 291.1 MOS/KG (273-304)
[2020-08-11 06:37] LABS: Band Neutrophils 1 % (0-10); Lymphocytes 2 % (20-55); Platelet Estimate Decreased; Segmented Neutrophils 92 % (50-85)
[2020-08-11 06:38] LABS: Hypochromasia Slight; Total Cells Counted 100
[2020-08-11] MEDS ORDERED: DIAZEPAM 5 MG TABLET PO ONE (07:00)
[2020-08-11] MEDS ORDERED: MIDAZOLAM 2 MG/2 ML VIAL IV ONE (07:00)
[2020-08-11] MEDS ORDERED: fentaNYL 100 MCG/2 ML VIAL IV ONE (07:00)
[2020-08-11] MEDS: ALBUTEROL/IPRATROPIUM 3 ML NEB RESP TX SCH ×4 (07:07→19:13)
[2020-08-11] MEDS: INSULIN REGULAR 100 UNIT/ML SUBCUT SCH ×4 (08:45→20:22)
[2020-08-11] MEDS: SODIUM CHLORIDE 0.45% 1,000 ML IV SCH (09:01)
[2020-08-11] MEDS ORDERED: MIDAZOLAM 2 MG/2 ML VIAL ONE (10:24)
[2020-08-11] MEDS ORDERED: fentaNYL 100 MCG/2 ML VIAL ONE (10:24)
[2020-08-11] MEDS ORDERED: HEPARIN LOCK FLUSH 500 UNIT/5 ML SYRINGE IV ONE (12:03)
[2020-08-11] MEDS: PANTOPRAZOLE 40 MG TABLET PO SCH ×2 (12:52→18:24)
[2020-08-11] MEDS: NYSTATIN POWDER 15 GM BOTTLE TOP SCH ×2 (12:52→20:29)
[2020-08-11] MEDS: HEPARIN 5,000 UNIT/1 ML VIAL SUBCUT SCH ×2 (12:52→20:29)
[2020-08-11] MEDS: SEVELAMER CARBONATE 800 MG TABLET PO SCH ×2 (12:52→18:24)
[2020-08-11] MEDS: ASPIRIN EC 81 MG TABLET PO SCH (12:52)
[2020-08-11] MEDS ORDERED: ALBUTEROL/IPRATROPIUM 3 ML NEB RESP TX ONE ×2 (14:18→18:12)
[2020-08-11] MEDS ORDERED: VANCOMYCIN INJ 750 MG in SODIUM CHLORIDE 0.9% 250 ML IV ONE (17:00)
[2020-08-11] MEDS: APIXABAN 2.5 MG TABLET PO SCH (20:21)
[2020-08-11] MEDS: GABAPENTIN 100 MG CAPSULE PO SCH (20:21)
[2020-08-12] MEDS: ONDANSETRON 4 MG/2 ML VIAL IV PRN ×2 (04:29→07:53)
[2020-08-12 06:55] LABS: Calcium 8.2 MG/DL (8.5-10.1); Osmolality,Calculated 283.7 MOS/KG (273-304)
[2020-08-12] MEDS ORDERED: ALBUTEROL 0.63 MG/3 ML NEB RESP TX ONE (06:57)
[2020-08-12] MEDS ORDERED: ALBUTEROL/IPRATROPIUM 3 ML NEB RESP TX ONE ×2 (06:59→12:05)
[2020-08-12] MEDS: ALBUTEROL/IPRATROPIUM 3 ML NEB RESP TX SCH ×3 (07:14→14:20)
[2020-08-12] MEDS: INSULIN REGULAR 100 UNIT/ML SUBCUT SCH ×3 (07:53→16:41)
[2020-08-12 09:47] LABS: Basophils % 0.1 % (0.0-0.8); Eosinophils % 0.5 % (0.00-10.9); Hematocrit 26.5 VOL% (42.0-52.0); Hemoglobin 8.5 GM/DL (14.0-18.0); Immature Granulocytes % 0.8 %; Immature Granulocytes Absolute 0.07 #; Lymphocytes # 0.8 10*3/uL (1.4-4.0); Lymphocytes % 9.1 % (21.2-54.2); Mean Corpuscular HGB Conc 32.1 GM/DL (32-36); Mean Corpuscular Volume 101.9 FL (87-102); Mean Platelet Volume 13.6 FL (9.6-12.0); Monocytes % 6.3 % (1.7-12.7); Neutrophils % 83.2 % (38.7-73.9); Red Cell Distribution Width 14.8 % (9.3-17.3); White Blood Count 8.4 T/CUMM (4-12)
[2020-08-12 09:49] LABS: Platelet Count 90 T/CUMM (130-400)
[2020-08-12 10:18] LABS: Hypochromasia Slight; Microcytosis 1+
[2020-08-12 10:19] LABS: Platelet Estimate Decreased
[2020-08-12] MEDS: SEVELAMER CARBONATE 800 MG TABLET PO SCH ×2 (11:38→16:41)
[2020-08-12] MEDS: PANTOPRAZOLE 40 MG TABLET PO SCH ×2 (11:38→16:41)
[2020-08-12] MEDS: SODIUM CHLORIDE 0.45% 1,000 ML IV SCH (11:41)
[2020-08-12] MEDS: NYSTATIN POWDER 15 GM BOTTLE TOP SCH (12:09)
[2020-08-12] MEDS: APIXABAN 2.5 MG TABLET PO SCH (12:09)
[2020-08-12] MEDS: ASPIRIN EC 81 MG TABLET PO SCH (12:09)
[2020-08-12 15:52] VITALS: BP 105/56
== END 2020-08-12 18:19 | disposition home or self-care (01) | DRG 871 ==
LOC: N.5E 16:53
PROVIDERS: ADMIT Internal Medicine; ATTEND Internal Medicine Geriatric Medicine

== ENCOUNTER 2021-07-27 00:50 | Inpatient (IN) ==
[2021-07-27] MEDS ORDERED: VANCOMYCIN INJ 1,000 MG in SODIUM CHLORIDE 0.9% 250 ML IV STA ×2 (02:49→02:52)
[2021-07-27 03:02] LABS: Basophils % 0.5 % (0.0-0.8); Hematocrit 34.5 VOL% (42.0-52.0); Hemoglobin 11.3 GM/DL (14.0-18.0); Immature Granulocytes % 0.7 %; Immature Granulocytes Absolute 0.04 #; Lymphocytes # 0.8 10*3/uL (1.4-4.0); Lymphocytes % 12.7 % (21.2-54.2); Mean Corpuscular HGB Conc 32.8 GM/DL (32-36); Mean Corpuscular Volume 102.1 FL (87-102); Monocytes % 11.1 % (1.7-12.7); Platelet Count 118 T/CUMM (130-400); Red Blood Count 3.38 MC/CUMM (3.8-5.5); Red Cell Distribution Width 13.2 % (9.3-17.3); White Blood Count 6.1 T/CUMM (4-12)
[2021-07-27 03:16] LABS: Albumin 3.3 G/DL (3.4-5.0); Bilirubin,Total 0.4 MG/DL (0.20-1.00); Lactic Acid 1.4 MMOL/L (0.4-2.0); Osmolality,Calculated 281.5 MOS/KG (273-304); Potassium 3.1 MMOL/L (3.5-5.1); Total Protein 7.8 G/DL (6.4-8.2)
[2021-07-27] MEDS ORDERED: NOREPINEPHRINE 4 MG/4 ML VIAL IV ONE (03:57)
[2021-07-27] MEDS ORDERED: NOREPINEPHRINE 4 MG in SODIUM CHLORIDE 0.9% 246 ML IV PRN (03:57)
[2021-07-27] MEDS ORDERED: SODIUM CHLORIDE 0.9% 500 ML IV STA (04:00)
[2021-07-27] MEDS ORDERED: ACETAMINOPHEN 325 MG TABLET PO PRN (05:13)
[2021-07-27] MEDS ORDERED: MORPHINE 2 MG/1 ML SYRINGE IV PRN (05:13)
[2021-07-27] MEDS ORDERED: ALBUTEROL 2.5 MG/3 ML NEB RESP TX PRN (05:13)
[2021-07-27] MEDS ORDERED: ONDANSETRON 4 MG/2 ML VIAL IV PRN (05:13)
[2021-07-27] MEDS ORDERED: GLUCAGON 1 MG VIAL IM PRN (05:24)
[2021-07-27] MEDS ORDERED: DEXTROSE 50% 25 GM/50 ML VIAL IV PRN (05:24)
[2021-07-27] MEDS ORDERED: SODIUM CHLORIDE 0.9% 1,000 ML IV STA (05:34)
[2021-07-27] MEDS: metroNIDAZOLE INJ 500 MG/100 ML PREMIX IV SCH ×3 (05:52→23:03)
[2021-07-27] MEDS ORDERED: INSULIN REGULAR 100 UNIT/ML SUBCUT SCH (06:00)
[2021-07-27] MEDS: AMPICILLIN INJ 2,000 MG in SODIUM CHLORIDE 0.9% 100 ML IV SCH ×2 (06:52→18:16)
[2021-07-27] MEDS: INSULIN REGULAR 100 UNIT/ML SUBCUT SCH ×3 (07:24→19:00)
[2021-07-27] MEDS ORDERED: VANCOMYCIN INJ 500 MG in SODIUM CHLORIDE 0.9% 100 ML IV PRN (07:56)
[2021-07-27] MEDS ORDERED: PANTOPRAZOLE 40 MG VIAL IV SCH (09:00)
[2021-07-27] MEDS ORDERED: VANCOMYCIN INJ 500 MG in SODIUM CHLORIDE 0.9% 100 ML IV ONE (09:00)
[2021-07-27] MEDS: SEVELAMER CARBONATE 800 MG TABLET PO SCH ×4 (10:05→18:16)
[2021-07-27] MEDS ORDERED: SODIUM CHLORIDE 0.9% 500 ML IV ONE (10:34)
[2021-07-27] MEDS: SODIUM CHLORIDE 0.9% 1,000 ML IV SCH ×2 (12:29→20:30)
[2021-07-27] MEDS: MIDODRINE 5 MG TABLET PO SCH ×2 (12:29→23:04)
[2021-07-27] MEDS: ALBUTEROL/IPRATROPIUM 3 ML NEB RESP TX SCH ×2 (13:23→20:11)
[2021-07-27] MEDS: DESITIN 4OZ/NYSTATIN 15 GRAM MIXTURE PASTE TOP SCH ×2 (18:16→23:02)
[2021-07-27] MEDS ORDERED: INSULIN DETEMIR 100 UNIT/ML SUBCUT SCH (21:00)
[2021-07-27] MEDS ORDERED: CHOLESTYRAMINE/ASPARTAME 4 GM PACK PO SCH (22:00)
[2021-07-27] MEDS: GABAPENTIN 100 MG CAPSULE PO SCH (23:05)
[2021-07-28] MEDS: ALBUTEROL/IPRATROPIUM 3 ML NEB RESP TX SCH ×4 (00:07→20:20)
[2021-07-28] MEDS: INSULIN REGULAR 100 UNIT/ML SUBCUT SCH ×4 (01:14→21:18)
[2021-07-28] MEDS: SODIUM CHLORIDE 0.9% 1,000 ML IV SCH ×2 (05:31→17:02)
[2021-07-28] MEDS: metroNIDAZOLE INJ 500 MG/100 ML PREMIX IV SCH ×3 (05:32→21:19)
[2021-07-28 05:56] LABS: Basophils % 0.4 % (0.0-0.8); Eosinophils # 0.1 10*3/uL (0.0-0.87); Eosinophils % 1.8 % (0.00-10.9); Hematocrit 34.2 VOL% (42.0-52.0); Hemoglobin 11.3 GM/DL (14.0-18.0); Immature Granulocytes % 0.4 %; Immature Granulocytes Absolute 0.02 #; Lymphocytes # 0.8 10*3/uL (1.4-4.0); Lymphocytes % 16.1 % (21.2-54.2); Mean Corpuscular Volume 100.9 FL (87-102); Monocytes % 10.4 % (1.7-12.7); Neutrophils % 70.9 % (38.7-73.9); Platelet Count 134 T/CUMM (130-400); Red Blood Count 3.39 MC/CUMM (3.8-5.5); Red Cell Distribution Width 13.3 % (9.3-17.3); White Blood Count 5.1 T/CUMM (4-12)
[2021-07-28 06:10] LABS: Albumin 2.8 G/DL (3.4-5.0); Bilirubin,Total 0.5 MG/DL (0.20-1.00); Calcium 7.7 MG/DL (8.5-10.1); Osmolality,Calculated 287.5 MOS/KG (273-304); Potassium 3.1 MMOL/L (3.5-5.1); Total Protein 7.5 G/DL (6.4-8.2)
[2021-07-28] MEDS: AMPICILLIN INJ 2,000 MG in SODIUM CHLORIDE 0.9% 100 ML IV SCH (06:47)
[2021-07-28] MEDS: MIDODRINE 5 MG TABLET PO SCH ×2 (08:21→21:19)
[2021-07-28] MEDS: SEVELAMER CARBONATE 800 MG TABLET PO SCH ×2 (08:21→17:20)
[2021-07-28] MEDS: PANTOPRAZOLE 40 MG TABLET PO SCH (08:21)
[2021-07-28] MEDS: DESITIN 4OZ/NYSTATIN 15 GRAM MIXTURE PASTE TOP SCH ×2 (08:22→21:24)
[2021-07-28] MEDS ORDERED: VANCOMYCIN INJ 1,000 MG in SODIUM CHLORIDE 0.9% 250 ML IV SCH (09:00)
[2021-07-28] MEDS ORDERED: HEPARIN 10,000 UNIT/10 ML VIAL IV ONE (09:45)
[2021-07-28] MEDS ORDERED: CHOLESTYRAMINE/ASPARTAME 4 GM PACK PO SCH (10:00)
[2021-07-28] MEDS ORDERED: VANCOMYCIN INJ 500 MG in SODIUM CHLORIDE 0.9% 100 ML IV ONE (17:00)
[2021-07-28] MEDS: CHOLESTYRAMINE/ASPARTAME 4 GM PACK PO SCH (21:19)
[2021-07-28] MEDS: GABAPENTIN 100 MG CAPSULE PO SCH (21:19)
[2021-07-29] MEDS: INSULIN REGULAR 100 UNIT/ML SUBCUT SCH ×4 (01:16→19:08)
[2021-07-29] MEDS: ALBUTEROL/IPRATROPIUM 3 ML NEB RESP TX SCH ×4 (01:18→20:39)
[2021-07-29 05:42] LABS: Basophils % 0.5 % (0.0-0.8); Eosinophils # 0.1 10*3/uL (0.0-0.87); Eosinophils % 2.4 % (0.00-10.9); Hematocrit 30.9 VOL% (42.0-52.0); Hemoglobin 10.2 GM/DL (14.0-18.0); Immature Granulocytes % 0.2 %; Immature Granulocytes Absolute 0.01 #; Lymphocytes # 0.7 10*3/uL (1.4-4.0); Mean Platelet Volume 11.9 FL (9.6-12.0); Monocytes % 13.7 % (1.7-12.7); Neutrophils % 66.2 % (38.7-73.9); Platelet Count 134 T/CUMM (130-400); Red Blood Count 3.06 MC/CUMM (3.8-5.5); Red Cell Distribution Width 13.7 % (9.3-17.3); White Blood Count 4.2 T/CUMM (4-12)
[2021-07-29] MEDS: metroNIDAZOLE INJ 500 MG/100 ML PREMIX IV SCH ×2 (06:01→13:33)
[2021-07-29 06:07] LABS: Calcium 7.7 MG/DL (8.5-10.1); Osmolality,Calculated 287.1 MOS/KG (273-304); Potassium 2.7 MMOL/L (3.5-5.1)
[2021-07-29] MEDS: SEVELAMER CARBONATE 800 MG TABLET PO SCH ×2 (08:27→16:48)
[2021-07-29] MEDS: MIDODRINE 5 MG TABLET PO SCH ×2 (08:27→20:21)
[2021-07-29] MEDS: DESITIN 4OZ/NYSTATIN 15 GRAM MIXTURE PASTE TOP SCH ×2 (08:27→20:22)
[2021-07-29] MEDS: PANTOPRAZOLE 40 MG TABLET PO SCH (08:27)
[2021-07-29] MEDS ORDERED: POTASSIUM CHLORIDE 20 MEQ TABLET PO ONE (08:46)
[2021-07-29] MEDS ORDERED: LEVOFLOXACIN INJ 500 MG/100 ML PREMIX IV SCH (09:00)
[2021-07-29] MEDS ORDERED: LEVOFLOXACIN INJ 500 MG/100 ML PREMIX IV ONE (09:30)
[2021-07-29] MEDS: CHOLESTYRAMINE/ASPARTAME 4 GM PACK PO SCH (09:32)
[2021-07-29] MEDS ORDERED: chlorproMAZINE 25 MG TABLET PO PRN (15:04)
[2021-07-29] MEDS: GABAPENTIN 100 MG CAPSULE PO SCH (20:21)
[2021-07-30] MEDS: ALBUTEROL/IPRATROPIUM 3 ML NEB RESP TX SCH ×3 (01:00→15:13)
[2021-07-30 05:49] LABS: Basophils % 0.2 % (0.0-0.8); Hematocrit 29.5 VOL% (42.0-52.0); Hemoglobin 9.8 GM/DL (14.0-18.0); Immature Granulocytes % 0.7 %; Immature Granulocytes Absolute 0.03 #; Lymphocytes # 0.5 10*3/uL (1.4-4.0); Lymphocytes % 12.9 % (21.2-54.2); Mean Corpuscular HGB Conc 33.2 GM/DL (32-36); Mean Corpuscular Volume 101.7 FL (87-102); Mean Platelet Volume 11.1 FL (9.6-12.0); Monocytes % 14.9 % (1.7-12.7); Neutrophils % 70.3 % (38.7-73.9); Platelet Count 123 T/CUMM (130-400); Red Cell Distribution Width 13.8 % (9.3-17.3); White Blood Count 4.1 T/CUMM (4-12)
[2021-07-30 06:19] LABS: Calcium 7.4 MG/DL (8.5-10.1); Osmolality,Calculated 291.4 MOS/KG (273-304); Potassium 3.2 MMOL/L (3.5-5.1)
[2021-07-30] MEDS: INSULIN REGULAR 100 UNIT/ML SUBCUT SCH ×3 (06:38→13:42)
[2021-07-30] MEDS ORDERED: CHOLESTYRAMINE/ASPARTAME 4 GM PACK PO SCH (09:00)
[2021-07-30] MEDS: SEVELAMER CARBONATE 800 MG TABLET PO SCH ×2 (09:10→17:08)
[2021-07-30] MEDS: DESITIN 4OZ/NYSTATIN 15 GRAM MIXTURE PASTE TOP SCH (09:10)
[2021-07-30] MEDS: PANTOPRAZOLE 40 MG TABLET PO SCH (09:10)
[2021-07-30] MEDS: MIDODRINE 5 MG TABLET PO SCH (09:10)
[2021-07-30] MEDS ORDERED: HEPARIN 10,000 UNIT/10 ML VIAL IV SCH (12:30)
[2021-07-30 15:51] VITALS: BP 117/57
[2021-07-31] MEDS ORDERED: LEVOFLOXACIN INJ 250 MG/50 ML PREMIX IV SCH (09:30)
== END 2021-07-30 18:37 | disposition home or self-care (01) | DRG 871 ==
LOC: EDBD → EDUNIT# → N.ED 00:50 → SUATTDRO 05:13 → N.EDINP 05:13 → N.ICU 07:41 → N.5E 16:07
PROVIDERS: ADMIT Internal Medicine; ATTEND Internal Medicine

== ENCOUNTER 2022-08-01 20:00 | Inpatient (IN) ==
[2022-08-01] MEDS ORDERED: PIPERACILLIN/TAZOBACTAM 3,375 MG in SODIUM CHLORIDE 0.9% 100 ML IV STA (23:06)
[2022-08-02 01:18] LABS: Basophils % 0.2 % (0.0-0.8); Eosinophils # 0.2 10*3/uL (0.0-0.87); Eosinophils % 2.5 % (0.00-10.9); Hematocrit 42.2 VOL% (42.0-52.0); Hemoglobin 13.3 GM/DL (14.0-18.0); Immature Granulocytes % 0.2 %; Immature Granulocytes Absolute 0.01 #; Lymphocytes # 1.1 10*3/uL (1.4-4.0); Mean Corpuscular HGB Conc 31.5 GM/DL (32-36); Mean Corpuscular Volume 105.2 FL (87-102); Mean Platelet Volume 10.7 FL (9.6-12.0); Monocytes # 0.5 10*3/uL (0.11-0.8); Monocytes % 7.4 % (1.7-12.7); Neutrophils % 71.7 % (38.7-73.9); Platelet Count 180 T/CUMM (130-400); Red Blood Count 4.01 MC/CUMM (3.8-5.5); Red Cell Distribution Width 16.7 % (9.3-17.3); White Blood Count 6.1 T/CUMM (4-12)
[2022-08-02] MEDS ORDERED: HYDROmorphone 1 MG/1 ML SYRINGE IV STA (01:20)
[2022-08-02] MEDS ORDERED: ONDANSETRON 4 MG/2 ML VIAL IV ONE (01:20)
[2022-08-02 01:34] LABS: Alanine Aminotransferase 17 U/L (16-61); Albumin 3.3 G/DL (3.4-5.0); Alkaline Phosphatase 160 U/L (45-117); Aspartate Amino Transferase 16 U/L (0-37); Bilirubin,Total < 0.39 MG/DL (0.20-1.00); Blood Urea Nitrogen 36 MG/DL (7-18); Calcium 9.4 MG/DL (8.5-10.1); Carbon Dioxide 26 MMOL/L (21-32); Chloride 99 MMOL/L (98-107); Glucose 154 MG/DL (74-106); Osmolality,Calculated 278.2 MOS/KG (273-304); Potassium 4.2 MMOL/L (3.5-5.1); Sodium 134 MMOL/L (136-145); Total Protein 9.7 G/DL (6.4-8.2)
[2022-08-02] MEDS ORDERED: DEXTROSE 10% 250 ML BAG IV PRN (02:31)
[2022-08-02] MEDS ORDERED: ONDANSETRON 4 MG/2 ML VIAL IV PRN (02:31)
[2022-08-02] MEDS ORDERED: ACETAMINOPHEN 325 MG TABLET PO PRN (02:31)
[2022-08-02] MEDS ORDERED: ALUMINUM/MAGNES/SIMETH MAX STR 30 ML UDCUP PO PRN (02:31)
[2022-08-02] MEDS ORDERED: GLUCAGON 1 MG VIAL IM PRN (02:31)
[2022-08-02] MEDS ORDERED: VANCOMYCIN INJ 1,000 MG in SODIUM CHLORIDE 0.9% 250 ML IV ONE (02:39)
[2022-08-02] MEDS ORDERED: VANCOMYCIN INJ 500 MG in SODIUM CHLORIDE 0.9% 100 ML IV PRN (02:55)
[2022-08-02] MEDS ORDERED: HYDROmorphone 1 MG/1 ML SYRINGE IV PRN (03:03)
[2022-08-02 03:25] LABS: INR 0.9; PT Patient Result 10.4 SECS (10.1-12.1); Partial Thromboplastin Time 31.9 SECS (23.7-32.9)
[2022-08-02] MEDS ORDERED: SODIUM CHLORIDE 0.9% 500 ML IV STA (03:49)
[2022-08-02] MEDS ORDERED: VANCOMYCIN INJ 1,750 MG in SODIUM CHLORIDE 0.9% 500 ML IV ONE (04:00)
[2022-08-02] MEDS: INSULIN REGULAR 100 UNIT/ML SUBCUT SCH ×2 (07:52→13:22)
[2022-08-02] MEDS ORDERED: PANTOPRAZOLE 40 MG TABLET PO SCH (09:00)
[2022-08-02] MEDS ORDERED: DOCUSATE SODIUM 100 MG CAPSULE PO SCH (09:00)
[2022-08-02] MEDS ORDERED: HEPARIN 5,000 UNIT/1 ML VIAL SUBCUT SCH (09:00)
[2022-08-02 14:43] VITALS: BP 110/82
== END 2022-08-02 15:54 | disposition home or self-care (01) | DRG 299 ==
LOC: N.ED 20:00 → N.EDINP 08-02 02:31 → N.5E 08-02 04:30
PROVIDERS: ADMIT Internal Medicine; ATTEND Internal Medicine

== ENCOUNTER 2022-08-14 11:48 | Observation (INO) ==
[2022-08-14 12:32] LABS: Basophils % 0.4 % (0.0-0.8); Eosinophils # 0.1 10*3/uL (0.0-0.87); Eosinophils % 1.8 % (0.00-10.9); Hematocrit 36.1 VOL% (42.0-52.0); Hemoglobin 11.8 GM/DL (14.0-18.0); Immature Granulocytes % 0.2 %; Immature Granulocytes Absolute 0.01 #; Lymphocytes # 0.9 10*3/uL (1.4-4.0); Lymphocytes % 15.3 % (21.2-54.2); Mean Corpuscular HGB Conc 32.7 GM/DL (32-36); Mean Corpuscular Volume 101.4 FL (87-102); Mean Platelet Volume 10.6 FL (9.6-12.0); Monocytes # 0.5 10*3/uL (0.11-0.8); Monocytes % 8.5 % (1.7-12.7); Neutrophils % 73.8 % (38.7-73.9); Platelet Count 176 T/CUMM (130-400); Red Blood Count 3.56 MC/CUMM (3.8-5.5); Red Cell Distribution Width 15.8 % (9.3-17.3); White Blood Count 5.6 T/CUMM (4-12)
[2022-08-14 12:56] LABS: PT Patient Result 10.7 SECS (10.1-12.1)
[2022-08-14 12:59] LABS: Partial Thromboplastin Time 121.1 SECS (23.7-32.9)
[2022-08-14 14:29] LABS: Alanine Aminotransferase 11 U/L (16-61); Alkaline Phosphatase 135 U/L (45-117); Aspartate Amino Transferase 20 U/L (0-37); Bilirubin,Total < 0.39 MG/DL (0.20-1.00); Blood Urea Nitrogen 76 MG/DL (7-18); Calcium 8.8 MG/DL (8.5-10.1); Carbon Dioxide 23 MMOL/L (21-32); Chloride 99 MMOL/L (98-107); Glucose 137 MG/DL (74-106); Osmolality,Calculated 292.2 MOS/KG (273-304); Potassium 5.1 MMOL/L (3.5-5.1); Sodium 134 MMOL/L (136-145); Total Protein 7.8 G/DL (6.4-8.2)
[2022-08-14] MEDS ORDERED: ACETAMINOPHEN 325 MG TABLET PO PRN (15:29)
[2022-08-14] MEDS ORDERED: GLUCAGON 1 MG VIAL IM PRN (15:29)
[2022-08-14] MEDS ORDERED: ONDANSETRON 4 MG/2 ML VIAL IV PRN (15:29)
[2022-08-14] MEDS ORDERED: oxyCODONE/ACETAMINOPHEN 5-325 MG TABLET PO PRN (15:33)
[2022-08-14] MEDS ORDERED: LOPERAMIDE 2 MG CAPSULE PO PRN (15:34)
[2022-08-14] MEDS ORDERED: DEXTROSE 10% 250 ML BAG IV PRN (15:36)
[2022-08-14] MEDS ORDERED: SEVELAMER CARBONATE 800 MG TABLET PO SCH (16:00)
[2022-08-14] MEDS ORDERED: cephALEXin 500 MG CAPSULE PO SCH (16:00)
[2022-08-14] MEDS ORDERED: INFLUENZA VIRUS VACCINE 0.5 ML SYRINGE IM ONE (18:13)
[2022-08-14] MEDS: cephALEXin 500 MG CAPSULE PO SCH (18:20)
[2022-08-14] MEDS: SEVELAMER CARBONATE 800 MG TABLET PO SCH (18:21)
[2022-08-14] MEDS ORDERED: HYDROmorphone 1 MG/1 ML SYRINGE IV ONE (19:22)
[2022-08-14] MEDS ORDERED: traMADol 50 MG TABLET PO PRN (19:23)
[2022-08-14] MEDS: PANTOPRAZOLE 40 MG TABLET PO SCH (21:12)
[2022-08-14] MEDS: INSULIN GLARGINE 100 UNIT/ML SUBCUT SCH (21:13)
[2022-08-15] MEDS: cephALEXin 500 MG CAPSULE PO SCH ×2 (05:51→21:02)
[2022-08-15 06:24] LABS: Basophils % 0.2 % (0.0-0.8); Eosinophils # 0.2 10*3/uL (0.0-0.87); Eosinophils % 3.3 % (0.00-10.9); Hematocrit 33.1 VOL% (42.0-52.0); Hemoglobin 10.7 GM/DL (14.0-18.0); Immature Granulocytes % 0.2 %; Immature Granulocytes Absolute 0.01 #; Lymphocytes % 22.8 % (21.2-54.2); Mean Corpuscular HGB Conc 32.3 GM/DL (32-36); Mean Corpuscular Volume 104.1 FL (87-102); Mean Platelet Volume 10.6 FL (9.6-12.0); Monocytes # 0.5 10*3/uL (0.11-0.8); Monocytes % 10.3 % (1.7-12.7); Neutrophils % 63.2 % (38.7-73.9); Platelet Count 152 T/CUMM (130-400); Red Blood Count 3.18 MC/CUMM (3.8-5.5); Red Cell Distribution Width 15.6 % (9.3-17.3); White Blood Count 4.6 T/CUMM (4-12)
[2022-08-15 06:55] LABS: Alanine Aminotransferase 12 U/L (16-61); Albumin 2.6 G/DL (3.4-5.0); Alkaline Phosphatase 131 U/L (45-117); Aspartate Amino Transferase 11 U/L (0-37); Bilirubin,Total < 0.39 MG/DL (0.20-1.00); Blood Urea Nitrogen 81 MG/DL (7-18); Calcium 8.4 MG/DL (8.5-10.1); Carbon Dioxide 24 MMOL/L (21-32); Chloride 99 MMOL/L (98-107); Glucose 179 MG/DL (74-106); Osmolality,Calculated 295.2 MOS/KG (273-304); Sodium 134 MMOL/L (136-145); Total Protein 7.4 G/DL (6.4-8.2)
[2022-08-15] MEDS: SEVELAMER CARBONATE 800 MG TABLET PO SCH ×3 (07:08→17:29)
[2022-08-15] MEDS ORDERED: PANTOPRAZOLE 40 MG TABLET PO SCH (09:00)
[2022-08-15] MEDS: FAMOTIDINE 20 MG TABLET PO SCH (09:15)
[2022-08-15] MEDS: PANTOPRAZOLE 40 MG TABLET PO SCH ×2 (09:15→21:02)
[2022-08-15] MEDS: amLODIPine 10 MG TABLET PO SCH (09:15)
[2022-08-15] MEDS: INSULIN REGULAR 100 UNIT/ML SUBCUT SCH ×3 (12:13→21:00)
[2022-08-15] MEDS ORDERED: MIDAZOLAM 2 MG/2 ML VIAL IV ONE (13:44)
[2022-08-15] MEDS ORDERED: DIAZEPAM 5 MG TABLET PO ONE (13:44)
[2022-08-15] MEDS ORDERED: fentaNYL 100 MCG/2 ML VIAL IV ONE (13:44)
[2022-08-15] MEDS ORDERED: VANCOMYCIN INJ 1,000 MG in SODIUM CHLORIDE 0.9% 250 ML IV ONE (13:44)
[2022-08-15] MEDS ORDERED: SODIUM CHLORIDE 0.45% 1,000 ML IV SCH (14:00)
[2022-08-15] MEDS ORDERED: HEPARIN LOCK FLUSH 500 UNIT/5 ML SYRINGE IV ONE (15:17)
[2022-08-15] MEDS ORDERED: TISSUE ADHESIVE 1 EACH APPLICATOR TOP ONE (15:17)
[2022-08-15] MEDS ORDERED: HEPARIN 10,000 UNIT/10 ML VIAL IV PRN (17:13)
[2022-08-15] MEDS: INSULIN GLARGINE 100 UNIT/ML SUBCUT SCH (21:00)
[2022-08-15] MEDS ORDERED: SODIUM CHLORIDE 0.9% 250 ML IV ONE (22:45)
[2022-08-16 05:11] LABS: Basophils % 0.4 % (0.0-0.8); Eosinophils # 0.1 10*3/uL (0.0-0.87); Eosinophils % 2.4 % (0.00-10.9); Hematocrit 31.9 VOL% (42.0-52.0); Hemoglobin 10.3 GM/DL (14.0-18.0); Immature Granulocytes % 0.4 %; Immature Granulocytes Absolute 0.02 #; Lymphocytes # 0.6 10*3/uL (1.4-4.0); Lymphocytes % 12.4 % (21.2-54.2); Mean Corpuscular HGB Conc 32.3 GM/DL (32-36); Mean Corpuscular Volume 102.9 FL (87-102); Mean Platelet Volume 10.2 FL (9.6-12.0); Monocytes # 0.4 10*3/uL (0.11-0.8); Monocytes % 7.5 % (1.7-12.7); Neutrophils % 76.9 % (38.7-73.9); Platelet Count 145 T/CUMM (130-400); Red Cell Distribution Width 15.9 % (9.3-17.3); White Blood Count 4.9 T/CUMM (4-12)
[2022-08-16 05:33] LABS: Alanine Aminotransferase 9 U/L (16-61); Albumin 2.5 G/DL (3.4-5.0); Alkaline Phosphatase 106 U/L (45-117); Aspartate Amino Transferase 12 U/L (0-37); Bilirubin,Total < 0.39 MG/DL (0.20-1.00); Blood Urea Nitrogen 40 MG/DL (7-18); Calcium 8.1 MG/DL (8.5-10.1); Carbon Dioxide 25 MMOL/L (21-32); Chloride 105 MMOL/L (98-107); Glucose 146 MG/DL (74-106); Osmolality,Calculated 285.8 MOS/KG (273-304); Potassium 4.5 MMOL/L (3.5-5.1); Sodium 137 MMOL/L (136-145)
[2022-08-16] MEDS: SEVELAMER CARBONATE 800 MG TABLET PO SCH ×2 (09:57→14:26)
[2022-08-16] MEDS: FAMOTIDINE 20 MG TABLET PO SCH (09:58)
[2022-08-16] MEDS: amLODIPine 10 MG TABLET PO SCH (09:58)
[2022-08-16] MEDS: cephALEXin 500 MG CAPSULE PO SCH (09:58)
[2022-08-16] MEDS: PANTOPRAZOLE 40 MG TABLET PO SCH (09:59)
[2022-08-16] MEDS: INSULIN REGULAR 100 UNIT/ML SUBCUT SCH ×2 (10:00→13:30)
[2022-08-16 11:56] VITALS: BP 110/67
== END 2022-08-16 14:30 | disposition home or self-care (01) ==
LOC: N.EDINP 11:48 → N.ED 11:48 → N.EDINP 17:31 → N.5E 17:37
PROVIDERS: ADMIT Family Medicine; ATTEND Family Medicine
PROC: IRFLCVC (2022-08-15 15:20)

== ENCOUNTER 2022-09-05 20:02 | Inpatient (IN) ==
[2022-09-05] MEDS ORDERED: VANCOMYCIN INJ 1,000 MG in SODIUM CHLORIDE 0.9% 250 ML IV STA (22:07)
[2022-09-05] MEDS ORDERED: HYDROmorphone 1 MG/1 ML SYRINGE IV STA (22:28)
[2022-09-05 22:36] LABS: Basophils # 0.1 10*3/uL (0.0-0.2); Basophils % 0.2 % (0.0-0.8); Eosinophils # 0.1 10*3/uL (0.0-0.87); Eosinophils % 0.6 % (0.00-10.9); Hematocrit 33.2 VOL% (42.0-52.0); Hemoglobin 10.8 GM/DL (14.0-18.0); Immature Granulocytes % 0.9 %; Immature Granulocytes Absolute 0.21 #; Lymphocytes # 0.8 10*3/uL (1.4-4.0); Lymphocytes % 3.4 % (21.2-54.2); Mean Corpuscular HGB Conc 32.5 GM/DL (32-36); Mean Corpuscular Volume 100.3 FL (87-102); Mean Platelet Volume 10.7 FL (9.6-12.0); Monocytes % 4.4 % (1.7-12.7); Neutrophils % 90.5 % (38.7-73.9); Platelet Count 285 T/CUMM (130-400); Red Blood Count 3.31 MC/CUMM (3.8-5.5); Red Cell Distribution Width 14.7 % (9.3-17.3); White Blood Count 23.2 T/CUMM (4-12)
[2022-09-05 22:46] LABS: INR 1.1; PT Patient Result 11.7 SECS (10.1-12.1)
[2022-09-05 22:54] LABS: Albumin 2.4 G/DL (3.4-5.0); Bilirubin,Total 0.9 MG/DL (0.20-1.00); Calcium 10.3 MG/DL (8.5-10.1); Osmolality,Calculated 270.2 MOS/KG (273-304); Potassium 5.7 MMOL/L (3.5-5.1); Total Protein 8.1 G/DL (6.4-8.2)
[2022-09-05 23:00] LABS: Eosinophils 1 % (0-10); Lymphocytes 5 % (20-55); Platelet Estimate Adequate; Total Cells Counted 100
[2022-09-05] MEDS ORDERED: INSULIN REGULAR 10 UNIT, CALCIUM GLUCONATE 1,000 MG in DEXTROSE 10% 250 ML IV ONE (23:06)
[2022-09-05] MEDS ORDERED: PIPERACILLIN/TAZOBACTAM 3,375 MG in SODIUM CHLORIDE 0.9% 100 ML IV STA (23:24)
[2022-09-05] MEDS ORDERED: ONDANSETRON 4 MG/2 ML VIAL IV PRN (23:25)
[2022-09-05] MEDS ORDERED: diphenhydrAMINE CAP 25 MG CAPSULE PO PRN (23:25)
[2022-09-05] MEDS ORDERED: hydrALAZINE 20 MG/1 ML VIAL IV PRN (23:25)
[2022-09-05] MEDS ORDERED: NICOTINE 21 MG/24 HR PATCH TRANSDERM PRN (23:25)
[2022-09-05] MEDS ORDERED: guaiFENesin/DM ER 600-30 MG TABLET PO PRN (23:25)
[2022-09-05] MEDS ORDERED: MORPHINE 2 MG/1 ML SYRINGE IV PRN (23:25)
[2022-09-05] MEDS ORDERED: ACETAMINOPHEN 325 MG TABLET PO PRN (23:25)
[2022-09-06] MEDS: VANCOMYCIN INJ 1,000 MG in SODIUM CHLORIDE 0.9% 250 ML IV STA ×2 (00:41→01:47)
[2022-09-06 04:48] LABS: Basophils # 0.1 10*3/uL (0.0-0.2); Basophils % 0.3 % (0.0-0.8); Eosinophils # 0.2 10*3/uL (0.0-0.87); Eosinophils % 0.9 % (0.00-10.9); Hematocrit 31.9 VOL% (42.0-52.0); Hemoglobin 10.3 GM/DL (14.0-18.0); Immature Granulocytes Absolute 0.19 #; Lymphocytes # 0.9 10*3/uL (1.4-4.0); Lymphocytes % 4.6 % (21.2-54.2); Mean Corpuscular HGB Conc 32.3 GM/DL (32-36); Mean Corpuscular Volume 100.6 FL (87-102); Mean Platelet Volume 10.8 FL (9.6-12.0); Monocytes # 0.9 10*3/uL (0.11-0.8); Monocytes % 4.5 % (1.7-12.7); Neutrophils % 88.7 % (38.7-73.9); Platelet Count 247 T/CUMM (130-400); Red Blood Count 3.17 MC/CUMM (3.8-5.5); Red Cell Distribution Width 14.6 % (9.3-17.3); White Blood Count 19.2 T/CUMM (4-12)
[2022-09-06 05:11] LABS: Calcium 10.3 MG/DL (8.5-10.1); Osmolality,Calculated 272.1 MOS/KG (273-304); Potassium 5.4 MMOL/L (3.5-5.1)
[2022-09-06 05:13] LABS: Lymphocytes 5 % (20-55); Total Cells Counted 100
[2022-09-06 05:15] LABS: Platelet Estimate Normal
[2022-09-06] MEDS: HYDROmorphone 1 MG/1 ML SYRINGE IV PRN (05:46)
[2022-09-06] MEDS ORDERED: SODIUM ZIRCONIUM CYCLOSILICATE 10 GM PACK PO ONE (06:36)
[2022-09-06] MEDS ORDERED: SEVELAMER CARBONATE 800 MG TABLET PO SCH (07:00)
[2022-09-06] MEDS: INSULIN LISPRO 100 UNIT/ML SUBCUT SCH ×2 (07:30→20:50)
[2022-09-06] MEDS ORDERED: BUPIVACAINE 0.5% 50 ML VIAL ONE (09:03)
[2022-09-06] MEDS ORDERED: LIDOCAINE 2% 5 ML VIAL ONE (09:05)
[2022-09-06] MEDS ORDERED: fentaNYL 100 MCG/2 ML VIAL ONE (09:06)
[2022-09-06] MEDS ORDERED: SODIUM CHLORIDE 0.9% 250 ML IV SCH (09:30)
[2022-09-06] MEDS ORDERED: KETAMINE 500 MG/10 ML VIAL ONE (11:04)
[2022-09-06] MEDS ORDERED: propofoL 200 MG/20 ML VIAL IV ONE (11:45)
[2022-09-06] MEDS ORDERED: ETOMIDATE 40 MG/20 ML VIAL IV ONE (11:45)
[2022-09-06] MEDS ORDERED: HYDROmorphone 1 MG/1 ML SYRINGE IV PRN (12:24)
[2022-09-06] MEDS ORDERED: HEPARIN 10,000 UNIT/10 ML VIAL IV PRN (13:33)
[2022-09-06] MEDS ORDERED: GLUCAGON 1 MG VIAL IM PRN (15:10)
[2022-09-06] MEDS ORDERED: DEXTROSE 10% 250 ML BAG IV PRN (15:11)
[2022-09-06] MEDS: MORPHINE 2 MG/1 ML SYRINGE IV PRN (19:44)
[2022-09-06] MEDS: PANTOPRAZOLE 40 MG TABLET PO SCH (20:51)
[2022-09-07] MEDS: MORPHINE 2 MG/1 ML SYRINGE IV PRN ×2 (00:01→20:25)
[2022-09-07 05:18] LABS: Basophils % 0.2 % (0.0-0.8); Eosinophils # 0.1 10*3/uL (0.0-0.87); Eosinophils % 0.5 % (0.00-10.9); Hematocrit 31.5 VOL% (42.0-52.0); Hemoglobin 9.8 GM/DL (14.0-18.0); Immature Granulocytes % 0.9 %; Immature Granulocytes Absolute 0.15 #; Lymphocytes # 0.7 10*3/uL (1.4-4.0); Lymphocytes % 4.4 % (21.2-54.2); Mean Corpuscular HGB Conc 31.1 GM/DL (32-36); Mean Platelet Volume 11.5 FL (9.6-12.0); Monocytes # 0.8 10*3/uL (0.11-0.8); Monocytes % 4.8 % (1.7-12.7); Neutrophils % 89.2 % (38.7-73.9); Platelet Count 243 T/CUMM (130-400); Red Blood Count 3.03 MC/CUMM (3.8-5.5); Red Cell Distribution Width 14.9 % (9.3-17.3); White Blood Count 16.7 T/CUMM (4-12)
[2022-09-07 05:41] LABS: Calcium 9.5 MG/DL (8.5-10.1); Osmolality,Calculated 276.4 MOS/KG (273-304); Potassium 4.9 MMOL/L (3.5-5.1)
[2022-09-07 06:38] LABS: Band Neutrophils 2 % (0-10); Hypochromia Slight; Lymphocytes 1 % (20-55); Total Cells Counted 100
[2022-09-07 06:39] LABS: Macrocytosis Slight
[2022-09-07] MEDS: PANTOPRAZOLE 40 MG TABLET PO SCH (09:57)
[2022-09-07] MEDS: INSULIN LISPRO 100 UNIT/ML SUBCUT SCH ×4 (10:05→22:46)
[2022-09-07] MEDS ORDERED: VANCOMYCIN INJ 500 MG in SODIUM CHLORIDE 0.9% 100 ML IV PRN (11:36)
[2022-09-07] MEDS: PIPERACILLIN/TAZOBACTAM 3,375 MG in SODIUM CHLORIDE 0.9% 100 ML IV SCH (14:31)
[2022-09-07] MEDS ORDERED: VANCOMYCIN INJ 500 MG in SODIUM CHLORIDE 0.9% 100 ML IV ONE (17:00)
[2022-09-07] MEDS: ZALEPLON 5 MG CAPSULE PO PRN (20:24)
[2022-09-08] MEDS: PIPERACILLIN/TAZOBACTAM 3,375 MG in SODIUM CHLORIDE 0.9% 100 ML IV SCH ×2 (02:30→15:09)
[2022-09-08] MEDS ORDERED: SODIUM CHLORIDE 0.9% 500 ML IV ONE (02:36)
[2022-09-08] MEDS: INSULIN LISPRO 100 UNIT/ML SUBCUT SCH ×3 (09:30→22:33)
[2022-09-08] MEDS: PANTOPRAZOLE 40 MG TABLET PO SCH (09:30)
[2022-09-08] MEDS: ZALEPLON 5 MG CAPSULE PO PRN (22:00)
[2022-09-08] MEDS: MORPHINE 2 MG/1 ML SYRINGE IV PRN (23:23)
[2022-09-09] MEDS: PIPERACILLIN/TAZOBACTAM 3,375 MG in SODIUM CHLORIDE 0.9% 100 ML IV SCH (01:05)
[2022-09-09] MEDS: INSULIN LISPRO 100 UNIT/ML SUBCUT SCH ×5 (07:09→21:09)
[2022-09-09] MEDS: MORPHINE 2 MG/1 ML SYRINGE IV PRN ×3 (07:44→17:08)
[2022-09-09] MEDS: PANTOPRAZOLE 40 MG TABLET PO SCH (08:11)
[2022-09-09] MEDS: cefTRIAXone 2,000 MG in SODIUM CHLORIDE 0.9% 100 ML IV SCH (13:03)
[2022-09-09] MEDS: HYDROmorphone 1 MG/1 ML SYRINGE IV PRN (22:32)
[2022-09-10 05:14] LABS: Basophils % 0.4 % (0.0-0.8); Eosinophils # 0.1 10*3/uL (0.0-0.87); Eosinophils % 0.9 % (0.00-10.9); Hematocrit 33.9 VOL% (42.0-52.0); Hemoglobin 10.6 GM/DL (14.0-18.0); Immature Granulocytes % 0.7 %; Immature Granulocytes Absolute 0.05 #; Lymphocytes # 0.7 10*3/uL (1.4-4.0); Lymphocytes % 9.8 % (21.2-54.2); Mean Corpuscular HGB Conc 31.3 GM/DL (32-36); Mean Platelet Volume 11.2 FL (9.6-12.0); Monocytes # 0.6 10*3/uL (0.11-0.8); Monocytes % 8.3 % (1.7-12.7); Neutrophils % 79.9 % (38.7-73.9); Platelet Count 229 T/CUMM (130-400); Red Blood Count 3.29 MC/CUMM (3.8-5.5); Red Cell Distribution Width 15.1 % (9.3-17.3); White Blood Count 7.6 T/CUMM (4-12)
[2022-09-10 05:43] LABS: Bilirubin,Total 0.6 MG/DL (0.20-1.00); Calcium 9.5 MG/DL (8.5-10.1); Osmolality,Calculated 280.1 MOS/KG (273-304); Potassium 5.4 MMOL/L (3.5-5.1); Total Protein 7.5 G/DL (6.4-8.2)
[2022-09-10] MEDS: PANTOPRAZOLE 40 MG TABLET PO SCH (08:50)
[2022-09-10] MEDS: INSULIN LISPRO 100 UNIT/ML SUBCUT SCH ×4 (08:50→21:15)
[2022-09-10] MEDS: cefTRIAXone 2,000 MG in SODIUM CHLORIDE 0.9% 100 ML IV SCH (08:51)
[2022-09-10] MEDS: HYDROmorphone 1 MG/1 ML SYRINGE IV PRN ×2 (08:52→12:45)
[2022-09-10] MEDS: SODIUM POLYSTYRENE SULFATE 15 GM/60 ML BOTTLE PO SCH ×3 (11:34→22:37)
[2022-09-10] MEDS: ZALEPLON 5 MG CAPSULE PO PRN (21:59)
[2022-09-11 05:49] LABS: Basophils % 0.3 % (0.0-0.8); Eosinophils # 0.1 10*3/uL (0.0-0.87); Eosinophils % 1.1 % (0.00-10.9); Hematocrit 31.3 VOL% (42.0-52.0); Hemoglobin 9.6 GM/DL (14.0-18.0); Immature Granulocytes % 0.7 %; Immature Granulocytes Absolute 0.06 #; Lymphocytes # 0.8 10*3/uL (1.4-4.0); Lymphocytes % 8.9 % (21.2-54.2); Mean Corpuscular HGB Conc 30.7 GM/DL (32-36); Mean Corpuscular Volume 103.6 FL (87-102); Mean Platelet Volume 11.1 FL (9.6-12.0); Monocytes # 0.7 10*3/uL (0.11-0.8); Monocytes % 7.4 % (1.7-12.7); Neutrophils % 81.6 % (38.7-73.9); Platelet Count 236 T/CUMM (130-400); Red Blood Count 3.02 MC/CUMM (3.8-5.5); Red Cell Distribution Width 15.1 % (9.3-17.3); White Blood Count 8.9 T/CUMM (4-12)
[2022-09-11 06:10] LABS: Albumin 1.9 G/DL (3.4-5.0); Bilirubin,Total 0.6 MG/DL (0.20-1.00); Calcium 9.1 MG/DL (8.5-10.1); Osmolality,Calculated 287.8 MOS/KG (273-304); Potassium 5.1 MMOL/L (3.5-5.1); Total Protein 7.3 G/DL (6.4-8.2)
[2022-09-11] MEDS: INSULIN LISPRO 100 UNIT/ML SUBCUT SCH ×4 (07:37→21:27)
[2022-09-11] MEDS: PANTOPRAZOLE 40 MG TABLET PO SCH (13:21)
[2022-09-11] MEDS: cefTRIAXone 2,000 MG in SODIUM CHLORIDE 0.9% 100 ML IV SCH (13:23)
[2022-09-12] MEDS: ZALEPLON 5 MG CAPSULE PO PRN (01:06)
[2022-09-12 05:03] LABS: Basophils % 0.2 % (0.0-0.8); Eosinophils # 0.1 10*3/uL (0.0-0.87); Eosinophils % 1.5 % (0.00-10.9); Hematocrit 30.9 VOL% (42.0-52.0); Hemoglobin 9.6 GM/DL (14.0-18.0); Immature Granulocytes % 0.7 %; Immature Granulocytes Absolute 0.07 #; Lymphocytes # 0.8 10*3/uL (1.4-4.0); Lymphocytes % 8.6 % (21.2-54.2); Mean Corpuscular HGB Conc 31.1 GM/DL (32-36); Mean Corpuscular Volume 103.3 FL (87-102); Mean Platelet Volume 11.2 FL (9.6-12.0); Monocytes # 0.8 10*3/uL (0.11-0.8); Monocytes % 8.2 % (1.7-12.7); Neutrophils % 80.8 % (38.7-73.9); Platelet Count 189 T/CUMM (130-400); Red Blood Count 2.99 MC/CUMM (3.8-5.5); Red Cell Distribution Width 14.9 % (9.3-17.3); White Blood Count 9.6 T/CUMM (4-12)
[2022-09-12 05:26] LABS: Albumin 1.8 G/DL (3.4-5.0); Bilirubin,Total 0.4 MG/DL (0.20-1.00); Calcium 8.8 MG/DL (8.5-10.1); Osmolality,Calculated 286.7 MOS/KG (273-304); Potassium 3.8 MMOL/L (3.5-5.1); Total Protein 7.1 G/DL (6.4-8.2)
[2022-09-12] MEDS: PANTOPRAZOLE 40 MG TABLET PO SCH (08:41)
[2022-09-12] MEDS: cefTRIAXone 2,000 MG in SODIUM CHLORIDE 0.9% 100 ML IV SCH (08:42)
[2022-09-12] MEDS: INSULIN LISPRO 100 UNIT/ML SUBCUT SCH ×3 (08:45→15:48)
[2022-09-12 16:23] VITALS: BP 82/34
== END 2022-09-12 16:39 | disposition home health service (06) | DRG 474 ==
LOC: EDBD → EDUNIT# → N.ED 20:02 → N.EDINP 23:25 → SUATTDRO 23:25 → N.EDINP 09-06 09:05 → N.5E 09-06 16:46
PROVIDERS: ADMIT Internal Medicine Geriatric Medicine; ATTEND Internal Medicine

== ENCOUNTER 2022-10-09 19:55 | Inpatient (IN) ==
[2022-10-09 22:11] LABS: Basophils % 0.5 % (0.0-0.8); Eosinophils # 0.4 10*3/uL (0.0-0.87); Eosinophils % 4.8 % (0.00-10.9); Hematocrit 28.1 VOL% (42.0-52.0); Hemoglobin 9.3 GM/DL (14.0-18.0); Immature Granulocytes % 0.5 %; Immature Granulocytes Absolute 0.04 #; Lymphocytes # 0.6 10*3/uL (1.4-4.0); Mean Corpuscular HGB Conc 33.1 GM/DL (32-36); Mean Corpuscular Volume 97.6 FL (87-102); Mean Platelet Volume 11.5 FL (9.6-12.0); Monocytes # 0.7 10*3/uL (0.11-0.8); Neutrophils % 79.2 % (38.7-73.9); Platelet Count 238 T/CUMM (130-400); Red Blood Count 2.88 MC/CUMM (3.8-5.5); Red Cell Distribution Width 15.5 % (9.3-17.3); White Blood Count 8.1 T/CUMM (4-12)
[2022-10-09] MEDS ORDERED: MORPHINE 2 MG/1 ML SYRINGE IV STA (22:20)
[2022-10-09] MEDS ORDERED: ONDANSETRON 4 MG/2 ML VIAL IV STA (22:20)
[2022-10-09] MEDS ORDERED: SODIUM CHLORIDE 0.9% 1,000 ML IV STA (22:20)
[2022-10-09] MEDS ORDERED: PIPERACILLIN/TAZOBACTAM 3,375 MG in SODIUM CHLORIDE 0.9% 100 ML IV STA (22:20)
[2022-10-09 23:29] LABS: Albumin 2.4 G/DL (3.4-5.0); Bilirubin,Total 0.8 MG/DL (0.20-1.00); Calcium 8.7 MG/DL (8.5-10.1); Osmolality,Calculated 273.1 MOS/KG (273-304); Potassium 4.2 MMOL/L (3.5-5.1); Total Protein 8.1 G/DL (6.4-8.2)
[2022-10-10] MEDS ORDERED: SIMETHICONE CHEW 125 MG TABLET PO PRN (00:06)
[2022-10-10] MEDS ORDERED: ACETAMINOPHEN 325 MG TABLET PO PRN (00:06)
[2022-10-10] MEDS ORDERED: VANCOMYCIN INJ 1,000 MG in SODIUM CHLORIDE 0.9% 250 ML IV ONE (00:18)
[2022-10-10] MEDS ORDERED: VANCOMYCIN INJ 1,750 MG in SODIUM CHLORIDE 0.9% 500 ML IV STA (00:27)
[2022-10-10] MEDS: MORPHINE 2 MG/1 ML SYRINGE IV PRN ×4 (00:54→21:13)
[2022-10-10] MEDS ORDERED: VANCOMYCIN INJ 500 MG in SODIUM CHLORIDE 0.9% 100 ML IV PRN (01:13)
[2022-10-10 04:38] LABS: Basophils % 0.3 % (0.0-0.8); Eosinophils # 0.3 10*3/uL (0.0-0.87); Eosinophils % 3.7 % (0.00-10.9); Hematocrit 26.5 VOL% (42.0-52.0); Hemoglobin 8.5 GM/DL (14.0-18.0); Immature Granulocytes % 0.8 %; Immature Granulocytes Absolute 0.06 #; Lymphocytes # 0.5 10*3/uL (1.4-4.0); Lymphocytes % 6.7 % (21.2-54.2); Mean Corpuscular HGB Conc 32.1 GM/DL (32-36); Mean Corpuscular Volume 99.3 FL (87-102); Mean Platelet Volume 10.7 FL (9.6-12.0); Monocytes # 0.6 10*3/uL (0.11-0.8); Monocytes % 8.1 % (1.7-12.7); Neutrophils % 80.4 % (38.7-73.9); Platelet Count 177 T/CUMM (130-400); Red Blood Count 2.67 MC/CUMM (3.8-5.5); Red Cell Distribution Width 15.3 % (9.3-17.3); White Blood Count 7.9 T/CUMM (4-12)
[2022-10-10 04:47] LABS: INR 1.1; PT Patient Result 11.7 SECS (10.1-12.1); Partial Thromboplastin Time 30.2 SECS (23.7-32.9)
[2022-10-10 04:58] LABS: Calcium 8.1 MG/DL (8.5-10.1); Osmolality,Calculated 278.8 MOS/KG (273-304); Potassium 4.5 MMOL/L (3.5-5.1)
[2022-10-10] MEDS: DOCUSATE SODIUM 100 MG CAPSULE PO SCH ×2 (09:03→21:13)
[2022-10-10] MEDS: PANTOPRAZOLE 40 MG TABLET PO SCH (09:03)
[2022-10-10] MEDS ORDERED: propofoL 200 MG/20 ML VIAL IV ONE (10:42)
[2022-10-10] MEDS ORDERED: LIDOCAINE 2% 5 ML VIAL ONE (10:42)
[2022-10-10] MEDS ORDERED: SEVOFLURANE 1 UNIT/15 MINUTE INH ONE (10:42)
[2022-10-10] MEDS ORDERED: fentaNYL 100 MCG/2 ML VIAL ONE (10:42)
[2022-10-10] MEDS ORDERED: MIDAZOLAM 2 MG/2 ML VIAL ONE (10:43)
[2022-10-10] MEDS ORDERED: BUPIVACAINE 0.5% 50 ML VIAL ONE (10:46)
[2022-10-10] MEDS ORDERED: PIPERACILLIN/TAZOBACTAM 3,375 MG in SODIUM CHLORIDE 0.9% 100 ML IV SCH (11:00)
[2022-10-10] MEDS ORDERED: KETAMINE 500 MG/10 ML VIAL ONE (11:13)
[2022-10-10] MEDS ORDERED: PHENYLEPHRINE 1 MG/10 ML SYRINGE IV ONE (11:31)
[2022-10-10] MEDS ORDERED: SODIUM CHLORIDE 0.9% 500 ML IV ONE ×2 (11:33→11:58)
[2022-10-10] MEDS ORDERED: PHENYLEPHRINE 10 MG/1 ML VIAL IV ONE (11:48)
[2022-10-10] MEDS ORDERED: PIPERACILLIN/TAZOBACTAM 2,250 MG in SODIUM CHLORIDE 0.9% 100 ML IV SCH (12:00)
[2022-10-10] MEDS ORDERED: MAGNESIUM HYDROXIDE SUSP 30 ML UDCUP PO PRN (12:07)
[2022-10-10] MEDS ORDERED: MEPERIDINE 25 MG/1 ML VIAL IV PRN ×2 (12:26→12:44)
[2022-10-10] MEDS ORDERED: ONDANSETRON 4 MG/2 ML VIAL IV PRN ×2 (12:26→12:44)
[2022-10-10] MEDS ORDERED: HYDROmorphone 1 MG/1 ML SYRINGE IV PRN (12:26)
[2022-10-10] MEDS ORDERED: PROMETHAZINE INJ 25 MG in SODIUM CHLORIDE 0.9% 50 ML IV PRN ×2 (12:26→12:44)
[2022-10-10] MEDS ORDERED: diphenhydrAMINE 50 MG/1 ML VIAL IV PRN ×2 (12:26→12:44)
[2022-10-10] MEDS: HYDROmorphone 1 MG/1 ML SYRINGE IV PRN ×4 (12:30→12:45)
[2022-10-10] MEDS ORDERED: HYDROmorphone 1 MG/1 ML SYRINGE ONE (12:40)
[2022-10-10] MEDS: cefTRIAXone 1,000 MG in SODIUM CHLORIDE 0.9% 100 ML IV SCH (12:49)
[2022-10-11] MEDS: MORPHINE 2 MG/1 ML SYRINGE IV PRN ×5 (00:46→20:19)
[2022-10-11 06:27] LABS: Basophils % 0.4 % (0.0-0.8); Eosinophils # 0.3 10*3/uL (0.0-0.87); Eosinophils % 3.4 % (0.00-10.9); Hemoglobin 8.5 GM/DL (14.0-18.0); Immature Granulocytes % 0.6 %; Immature Granulocytes Absolute 0.05 #; Lymphocytes # 0.7 10*3/uL (1.4-4.0); Lymphocytes % 7.6 % (21.2-54.2); Mean Corpuscular HGB Conc 31.5 GM/DL (32-36); Mean Corpuscular Volume 101.5 FL (87-102); Mean Platelet Volume 10.7 FL (9.6-12.0); Monocytes # 0.6 10*3/uL (0.11-0.8); Monocytes % 6.8 % (1.7-12.7); Neutrophils % 81.2 % (38.7-73.9); Platelet Count 195 T/CUMM (130-400); Red Blood Count 2.66 MC/CUMM (3.8-5.5); Red Cell Distribution Width 15.5 % (9.3-17.3); White Blood Count 8.6 T/CUMM (4-12)
[2022-10-11 06:54] LABS: Calcium 9.1 MG/DL (8.5-10.1); Osmolality,Calculated 282.8 MOS/KG (273-304); Potassium 4.6 MMOL/L (3.5-5.1)
[2022-10-11] MEDS: DOCUSATE SODIUM 100 MG CAPSULE PO SCH ×2 (08:36→20:19)
[2022-10-11] MEDS: PANTOPRAZOLE 40 MG TABLET PO SCH (08:36)
[2022-10-11] MEDS ORDERED: HEPARIN 10,000 UNIT/10 ML VIAL IV PRN (10:09)
[2022-10-11] MEDS: diphenhydrAMINE CAP 25 MG CAPSULE PO PRN ×2 (11:07→21:28)
[2022-10-11] MEDS: cefTRIAXone 1,000 MG in SODIUM CHLORIDE 0.9% 100 ML IV SCH (14:41)
[2022-10-11] MEDS: HEPARIN 5,000 UNIT/1 ML VIAL SUBCUT SCH ×2 (14:41→21:21)
[2022-10-11] MEDS: SEVELAMER CARBONATE 800 MG TABLET PO SCH (16:38)
[2022-10-11] MEDS ORDERED: VANCOMYCIN INJ 500 MG in SODIUM CHLORIDE 0.9% 100 ML IV ONE (17:00)
[2022-10-11] MEDS: MENTHOL/ZINC OXIDE OINT 71 GM JAR TOP SCH (20:22)
[2022-10-12] MEDS: MORPHINE 2 MG/1 ML SYRINGE IV PRN ×5 (01:10→20:40)
[2022-10-12] MEDS: HEPARIN 5,000 UNIT/1 ML VIAL SUBCUT SCH ×3 (05:38→21:38)
[2022-10-12 06:04] LABS: Basophils % 0.4 % (0.0-0.8); Eosinophils # 0.3 10*3/uL (0.0-0.87); Eosinophils % 4.8 % (0.00-10.9); Hematocrit 26.9 VOL% (42.0-52.0); Hemoglobin 8.4 GM/DL (14.0-18.0); Immature Granulocytes % 0.8 %; Immature Granulocytes Absolute 0.06 #; Lymphocytes # 0.8 10*3/uL (1.4-4.0); Lymphocytes % 10.9 % (21.2-54.2); Mean Corpuscular HGB Conc 31.2 GM/DL (32-36); Mean Corpuscular Volume 101.9 FL (87-102); Mean Platelet Volume 10.8 FL (9.6-12.0); Monocytes # 0.5 10*3/uL (0.11-0.8); Monocytes % 7.2 % (1.7-12.7); Neutrophils % 75.9 % (38.7-73.9); Platelet Count 178 T/CUMM (130-400); Red Blood Count 2.64 MC/CUMM (3.8-5.5); Red Cell Distribution Width 15.6 % (9.3-17.3); White Blood Count 7.1 T/CUMM (4-12)
[2022-10-12 06:38] LABS: Calcium 9.1 MG/DL (8.5-10.1); Osmolality,Calculated 277.2 MOS/KG (273-304); Potassium 4.3 MMOL/L (3.5-5.1)
[2022-10-12] MEDS: SEVELAMER CARBONATE 800 MG TABLET PO SCH ×3 (08:20→16:56)
[2022-10-12] MEDS: DOCUSATE SODIUM 100 MG CAPSULE PO SCH ×2 (08:20→20:41)
[2022-10-12] MEDS: PANTOPRAZOLE 40 MG TABLET PO SCH (08:20)
[2022-10-12] MEDS: MENTHOL/ZINC OXIDE OINT 71 GM JAR TOP SCH ×2 (08:21→20:41)
[2022-10-12] MEDS ORDERED: DEXTROSE 10% 250 ML BAG IV PRN (10:53)
[2022-10-12] MEDS ORDERED: GLUCAGON 1 MG VIAL IM PRN (10:53)
[2022-10-12] MEDS: INSULIN LISPRO 100 UNIT/ML SUBCUT SCH ×3 (11:41→20:41)
[2022-10-12] MEDS: cefTRIAXone 1,000 MG in SODIUM CHLORIDE 0.9% 100 ML IV SCH (14:23)
[2022-10-12] MEDS: diphenhydrAMINE CAP 25 MG CAPSULE PO PRN (22:43)
[2022-10-13] MEDS: MORPHINE 2 MG/1 ML SYRINGE IV PRN ×4 (00:47→23:54)
[2022-10-13] MEDS: HEPARIN 5,000 UNIT/1 ML VIAL SUBCUT SCH ×3 (05:07→21:04)
[2022-10-13 05:58] LABS: Basophils % 0.3 % (0.0-0.8); Eosinophils # 0.4 10*3/uL (0.0-0.87); Hematocrit 28.4 VOL% (42.0-52.0); Hemoglobin 8.8 GM/DL (14.0-18.0); Immature Granulocytes % 0.6 %; Immature Granulocytes Absolute 0.04 #; Lymphocytes # 0.9 10*3/uL (1.4-4.0); Mean Corpuscular Volume 101.8 FL (87-102); Mean Platelet Volume 10.5 FL (9.6-12.0); Monocytes # 0.6 10*3/uL (0.11-0.8); Neutrophils % 73.1 % (38.7-73.9); Platelet Count 205 T/CUMM (130-400); Red Blood Count 2.79 MC/CUMM (3.8-5.5); Red Cell Distribution Width 15.4 % (9.3-17.3); White Blood Count 7.2 T/CUMM (4-12)
[2022-10-13] MEDS: PANTOPRAZOLE 40 MG TABLET PO SCH (08:13)
[2022-10-13] MEDS: DOCUSATE SODIUM 100 MG CAPSULE PO SCH ×2 (08:13→21:04)
[2022-10-13] MEDS: SEVELAMER CARBONATE 800 MG TABLET PO SCH ×3 (08:13→17:25)
[2022-10-13] MEDS: MENTHOL/ZINC OXIDE OINT 71 GM JAR TOP SCH ×2 (08:13→21:04)
[2022-10-13] MEDS: INSULIN LISPRO 100 UNIT/ML SUBCUT SCH ×4 (08:47→21:11)
[2022-10-13] MEDS ORDERED: LACTULOSE 20 GM/30 ML UDCUP PO ONE (12:36)
[2022-10-13] MEDS: metroNIDAZOLE INJ 500 MG/100 ML PREMIX IV SCH ×2 (13:57→21:04)
[2022-10-13] MEDS: diphenhydrAMINE CAP 25 MG CAPSULE PO PRN ×2 (15:43→23:51)
[2022-10-14] MEDS: MORPHINE 2 MG/1 ML SYRINGE IV PRN ×4 (03:02→17:59)
[2022-10-14] MEDS: metroNIDAZOLE INJ 500 MG/100 ML PREMIX IV SCH ×3 (04:33→22:03)
[2022-10-14 05:12] LABS: Basophils % 0.3 % (0.0-0.8); Eosinophils # 0.3 10*3/uL (0.0-0.87); Eosinophils % 4.3 % (0.00-10.9); Hematocrit 25.2 VOL% (42.0-52.0); Hemoglobin 8.1 GM/DL (14.0-18.0); Immature Granulocytes % 0.9 %; Immature Granulocytes Absolute 0.06 #; Lymphocytes # 0.8 10*3/uL (1.4-4.0); Lymphocytes % 10.7 % (21.2-54.2); Mean Corpuscular HGB Conc 32.1 GM/DL (32-36); Mean Platelet Volume 10.4 FL (9.6-12.0); Monocytes # 0.6 10*3/uL (0.11-0.8); Monocytes % 8.6 % (1.7-12.7); Neutrophils % 75.2 % (38.7-73.9); Platelet Count 211 T/CUMM (130-400); Red Blood Count 2.52 MC/CUMM (3.8-5.5); Red Cell Distribution Width 15.1 % (9.3-17.3)
[2022-10-14] MEDS: HEPARIN 5,000 UNIT/1 ML VIAL SUBCUT SCH (05:20)
[2022-10-14 05:41] LABS: Calcium 8.5 MG/DL (8.5-10.1); Osmolality,Calculated 277.5 MOS/KG (273-304); Potassium 5.2 MMOL/L (3.5-5.1)
[2022-10-14] MEDS ORDERED: SEVOFLURANE 1 UNIT/15 MINUTE INH ONE ×4 (11:30→14:46)
[2022-10-14] MEDS ORDERED: LIDOCAINE 2% 5 ML VIAL ONE (11:30)
[2022-10-14] MEDS ORDERED: propofoL 200 MG/20 ML VIAL IV ONE (11:30)
[2022-10-14] MEDS ORDERED: fentaNYL 100 MCG/2 ML VIAL ONE (11:31)
[2022-10-14] MEDS ORDERED: SODIUM CHLORIDE 0.9% 250 ML IV SCH (12:30)
[2022-10-14] MEDS: PANTOPRAZOLE 40 MG TABLET PO SCH (12:41)
[2022-10-14] MEDS: INSULIN LISPRO 100 UNIT/ML SUBCUT SCH ×4 (12:41→21:03)
[2022-10-14] MEDS: DOCUSATE SODIUM 100 MG CAPSULE PO SCH ×2 (12:41→22:03)
[2022-10-14] MEDS: SEVELAMER CARBONATE 800 MG TABLET PO SCH ×3 (12:42→17:16)
[2022-10-14] MEDS: MENTHOL/ZINC OXIDE OINT 71 GM JAR TOP SCH ×2 (13:18→22:03)
[2022-10-14] MEDS ORDERED: ONDANSETRON 4 MG/2 ML VIAL IV PRN (14:23)
[2022-10-14] MEDS ORDERED: PROMETHAZINE INJ 25 MG in SODIUM CHLORIDE 0.9% 50 ML IV PRN (14:23)
[2022-10-14] MEDS ORDERED: diphenhydrAMINE 50 MG/1 ML VIAL IV PRN (14:23)
[2022-10-14] MEDS ORDERED: MEPERIDINE 25 MG/1 ML VIAL IV PRN (14:23)
[2022-10-14] MEDS ORDERED: PHENYLEPHRINE 1 MG/10 ML SYRINGE IV ONE (14:46)
[2022-10-14] MEDS ORDERED: CALCIUM CHLORIDE 1,000 MG/10 ML VIAL IV ONE (14:46)
[2022-10-14] MEDS: HYDROmorphone 1 MG/1 ML SYRINGE IV PRN ×4 (15:10→15:25)
[2022-10-14] MEDS: ONDANSETRON 4 MG/2 ML VIAL IV PRN (17:58)
[2022-10-15] MEDS: MORPHINE 2 MG/1 ML SYRINGE IV PRN ×2 (01:53→13:02)
[2022-10-15] MEDS: ONDANSETRON 4 MG/2 ML VIAL IV PRN ×2 (01:54→07:34)
[2022-10-15 04:25] LABS: Basophils % 0.4 % (0.0-0.8); Eosinophils # 0.2 10*3/uL (0.0-0.87); Eosinophils % 3.3 % (0.00-10.9); Hematocrit 27.3 VOL% (42.0-52.0); Hemoglobin 8.4 GM/DL (14.0-18.0); Immature Granulocytes % 0.7 %; Immature Granulocytes Absolute 0.05 #; Lymphocytes # 0.7 10*3/uL (1.4-4.0); Mean Corpuscular HGB Conc 30.8 GM/DL (32-36); Mean Corpuscular Volume 102.6 FL (87-102); Mean Platelet Volume 10.7 FL (9.6-12.0); Monocytes # 0.7 10*3/uL (0.11-0.8); Monocytes % 9.1 % (1.7-12.7); Neutrophils % 77.5 % (38.7-73.9); Platelet Count 214 T/CUMM (130-400); Red Blood Count 2.66 MC/CUMM (3.8-5.5); White Blood Count 7.4 T/CUMM (4-12)
[2022-10-15 04:48] LABS: Calcium 9.2 MG/DL (8.5-10.1); Osmolality,Calculated 277.1 MOS/KG (273-304); Potassium 4.9 MMOL/L (3.5-5.1)
[2022-10-15] MEDS: metroNIDAZOLE INJ 500 MG/100 ML PREMIX IV SCH ×3 (05:15→21:43)
[2022-10-15] MEDS: INSULIN LISPRO 100 UNIT/ML SUBCUT SCH ×4 (07:34→23:02)
[2022-10-15] MEDS: MENTHOL/ZINC OXIDE OINT 71 GM JAR TOP SCH ×2 (08:50→23:02)
[2022-10-15] MEDS: PANTOPRAZOLE 40 MG TABLET PO SCH (08:50)
[2022-10-15] MEDS: DOCUSATE SODIUM 100 MG CAPSULE PO SCH ×2 (08:50→21:43)
[2022-10-15] MEDS: SEVELAMER CARBONATE 800 MG TABLET PO SCH ×3 (08:50→16:20)
[2022-10-15] MEDS: HEPARIN 5,000 UNIT/1 ML VIAL SUBCUT SCH ×2 (16:21→23:00)
[2022-10-16] MEDS: ONDANSETRON 4 MG/2 ML VIAL IV PRN ×3 (05:20→20:58)
[2022-10-16] MEDS: metroNIDAZOLE INJ 500 MG/100 ML PREMIX IV SCH ×3 (05:20→20:56)
[2022-10-16] MEDS: HEPARIN 5,000 UNIT/1 ML VIAL SUBCUT SCH ×3 (05:20→21:00)
[2022-10-16 06:14] LABS: Basophils % 0.3 % (0.0-0.8); Eosinophils # 0.3 10*3/uL (0.0-0.87); Eosinophils % 4.3 % (0.00-10.9); Hemoglobin 9.1 GM/DL (14.0-18.0); Immature Granulocytes % 0.7 %; Immature Granulocytes Absolute 0.05 #; Lymphocytes # 0.9 10*3/uL (1.4-4.0); Lymphocytes % 12.6 % (21.2-54.2); Mean Corpuscular HGB Conc 31.4 GM/DL (32-36); Mean Corpuscular Volume 102.5 FL (87-102); Mean Platelet Volume 10.3 FL (9.6-12.0); Monocytes # 0.6 10*3/uL (0.11-0.8); Monocytes % 8.4 % (1.7-12.7); Neutrophils % 73.7 % (38.7-73.9); Platelet Count 266 T/CUMM (130-400); Red Blood Count 2.83 MC/CUMM (3.8-5.5); Red Cell Distribution Width 15.3 % (9.3-17.3); White Blood Count 6.9 T/CUMM (4-12)
[2022-10-16 06:32] LABS: Calcium 8.9 MG/DL (8.5-10.1); Osmolality,Calculated 279.1 MOS/KG (273-304); Potassium 4.8 MMOL/L (3.5-5.1)
[2022-10-16] MEDS: MORPHINE 2 MG/1 ML SYRINGE IV PRN (07:29)
[2022-10-16] MEDS: INSULIN LISPRO 100 UNIT/ML SUBCUT SCH ×4 (08:02→20:58)
[2022-10-16] MEDS: SEVELAMER CARBONATE 800 MG TABLET PO SCH ×3 (10:06→16:41)
[2022-10-16] MEDS: PANTOPRAZOLE 40 MG TABLET PO SCH (12:09)
[2022-10-16] MEDS: MENTHOL/ZINC OXIDE OINT 71 GM JAR TOP SCH ×2 (12:10→20:56)
[2022-10-16] MEDS: DOCUSATE SODIUM 100 MG CAPSULE PO SCH ×2 (14:33→20:57)
[2022-10-17] MEDS: diphenhydrAMINE CAP 25 MG CAPSULE PO PRN (02:43)
[2022-10-17] MEDS: metroNIDAZOLE INJ 500 MG/100 ML PREMIX IV SCH (04:09)
[2022-10-17 04:59] LABS: Basophils % 0.3 % (0.0-0.8); Eosinophils # 0.2 10*3/uL (0.0-0.87); Eosinophils % 3.1 % (0.00-10.9); Hematocrit 27.7 VOL% (42.0-52.0); Hemoglobin 8.8 GM/DL (14.0-18.0); Immature Granulocytes % 0.4 %; Immature Granulocytes Absolute 0.03 #; Lymphocytes # 0.7 10*3/uL (1.4-4.0); Lymphocytes % 10.6 % (21.2-54.2); Mean Corpuscular HGB Conc 31.8 GM/DL (32-36); Mean Corpuscular Volume 103.7 FL (87-102); Mean Platelet Volume 10.7 FL (9.6-12.0); Monocytes # 0.7 10*3/uL (0.11-0.8); Monocytes % 10.1 % (1.7-12.7); Neutrophils % 75.5 % (38.7-73.9); Platelet Count 268 T/CUMM (130-400); Red Blood Count 2.67 MC/CUMM (3.8-5.5); Red Cell Distribution Width 15.4 % (9.3-17.3)
[2022-10-17 05:15] LABS: Calcium 8.8 MG/DL (8.5-10.1); Osmolality,Calculated 281.1 MOS/KG (273-304); Potassium 4.6 MMOL/L (3.5-5.1)
[2022-10-17] MEDS: HEPARIN 5,000 UNIT/1 ML VIAL SUBCUT SCH (05:21)
[2022-10-17] MEDS: SEVELAMER CARBONATE 800 MG TABLET PO SCH ×2 (08:40→11:20)
[2022-10-17] MEDS: INSULIN LISPRO 100 UNIT/ML SUBCUT SCH ×2 (08:40→11:20)
[2022-10-17] MEDS: MENTHOL/ZINC OXIDE OINT 71 GM JAR TOP SCH (08:40)
[2022-10-17] MEDS: PANTOPRAZOLE 40 MG TABLET PO SCH (08:40)
[2022-10-17] MEDS: DOCUSATE SODIUM 100 MG CAPSULE PO SCH (08:40)
[2022-10-17 10:53] VITALS: BP 135/58
== END 2022-10-17 14:01 | disposition home health service (06) | DRG 513 ==
LOC: N.ED 19:55 → SUATTDRO 10-10 00:06 → N.EDINP 10-10 00:06 → N.5E 10-10 10:54 → N.3E 10-10 14:18
PROVIDERS: ADMIT Family Medicine; ATTEND Internal Medicine